=== PATIENT | female | born 1930 | race American Indian/Alaskan Native ===

== ENCOUNTER → 2016-05-14 | Outpatient (CLI) | payer OTHER, MEDICARE ==
[2016-05-14 13:13] LABS: BASO % 0.1 %; BASO ABS # 0.01 K/uL (0-0.2); COMPLETE YES; EOS % 3.4 %; HEMATOCRIT 40.6 % (37-47); IG% 0.1 %; LYMPH % 26.2 %; LYMPH ABS # 1.76 K/uL (1.2-3.4); MEAN CELL VOLUME 97.4 fL (80-100); MEAN CORPUSCULAR HEMOGLOBIN 31.4 pg (25-34); MEAN CORPUSCULAR HGB CONC 32.3 g/dl (32-36); MEAN PLATELET VOLUME 11.5 fL (7.4-10.4); MONO % 11.6 %; NEUT % 58.6 %; PLATELET COUNT 162 K/uL (130-400); RED BLOOD COUNT 4.17 M/uL (4.2-5.4); WHITE BLOOD COUNT 6.71 K/uL (4.8-10.8)
[2016-05-14 13:35] LABS: ALT/SGPT 24 U/L (12-78); BLOOD UREA NITROGEN 25 mg/dl (7-18); BUN/CREATININE RATIO 18.9 (10-20); CALCIUM 9.4 mg/dl (8.5-10.1); CARBON DIOXIDE 30 mmol/L (21-32); CHLORIDE 101 mmol/L (98-107); CHOLESTEROL 125 mg/dl (0-200); GLUCOSE 92 mg/dl (70-99); MAGNESIUM 1.9 mg/dl (1.8-2.4); POTASSIUM 4.6 mmol/L (3.5-5.1); SODIUM 138 mmol/L (136-145); TRIGLYCERIDES 207 mg/dl (0-150); VERY LOW DENSITY LIPOPROT CALC 41 mg/dl
[2016-05-14 13:39] LABS: ALB/GLOB RATIO 1.2 (0.9-2); ALKALINE PHOSPHATASE 64 U/L (45-117); AST/SGOT 22 U/L (15-37); CHOLESTEROL/HDL RATIO 3.3; HDL CHOLESTEROL 38 mg/dl; LDL CHOLESTEROL CALCULATED 46 mg/dl
== END | disposition home or self-care (01) ==
LOC: C.LABMFLN 08:45
PROVIDERS: ATTEND Family Medicine
DX: I10 Essential (primary) hypertension (principal); E78.5 Hyperlipidemia, unspecified; E83.42 Hypomagnesemia

== ENCOUNTER → 2017-02-27 | Outpatient (CLI) | payer OTHER, MEDICARE | END | disposition home or self-care (01) | LOC: C.LABMFLN 09:46 | PROVIDERS: ATTEND Family Medicine | DX: R35.0 Frequency of micturition (principal) ==

== ENCOUNTER → 2017-06-05 | Outpatient (CLI) | payer OTHER, MEDICARE ==
[2017-06-05 12:46] LABS: BASO % 0.2 %; BASO ABS # 0.01 K/uL (0-0.2); EOS % 6.2 %; EOS ABS # 0.29 K/uL (0-0.5); HEMATOCRIT 38.6 % (37-47); HEMOGLOBIN 12.3 g/dL (12.0-16.0); IG# 0.01 K/uL (0.00-0.02); LYMPH % 33.9 %; LYMPH ABS # 1.59 K/uL (1.2-3.4); MEAN CELL VOLUME 100.3 fL (80-100); MEAN CORPUSCULAR HEMOGLOBIN 31.9 pg (25-34); MEAN CORPUSCULAR HGB CONC 31.9 g/dl (32-36); MEAN PLATELET VOLUME 11.5 fL (7.4-10.4); MONO % 10.9 %; MONO ABS # 0.51 K/uL (0.11-0.59); NEUT % 48.6 %; NEUT ABS # 2.28 K/uL (1.4-6.5); PLATELET COUNT 141 K/uL (130-400); RED CELL DISTRIBUTION WIDTH CV 13.4 % (11.5-14.5); RED CELL DISTRIBUTION WIDTH SD 49.3 fL (36.4-46.3); WHITE BLOOD COUNT 4.69 K/uL (4.8-10.8)
[2017-06-05 13:18] LABS: BLOOD UREA NITROGEN 32 mg/dl (7-18); CALCIUM 9.1 mg/dl (8.5-10.1); CARBON DIOXIDE 32 mmol/L (21-32); CREATININE 1.42 mg/dl (0.60-1.20); GLUCOSE 86 mg/dl (70-99); POTASSIUM 4.5 mmol/L (3.5-5.1); SODIUM 140 mmol/L (136-145)
[2017-06-05 13:19] LABS: BLOOD UREA NITROGEN 32 mg/dl (7-18); CALCIUM 9.3 mg/dl (8.5-10.1); CARBON DIOXIDE 30 mmol/L (21-32); CREATININE 1.35 mg/dl (0.60-1.20); GLUCOSE 87 mg/dl (70-99); POTASSIUM 4.5 mmol/L (3.5-5.1); SODIUM 141 mmol/L (136-145)
[2017-06-05 13:26] LABS: CHOLESTEROL 116 mg/dl (0-200); LDL CHOLESTEROL CALCULATED 39 mg/dl; PHOSPHORUS 3.6 mg/dl (2.5-4.9)
== END | disposition home or self-care (01) ==
LOC: C.LABMFLN 09:00
PROVIDERS: ATTEND Family Medicine
DX: C50.012 Malignant neoplasm of nipple and areola, left female breast (principal)

== ENCOUNTER 2018-12-04 09:50 | Inpatient (IN) ==
[2018-12-04] MEDS ORDERED: SODIUM CHLORIDE 0.9% 500 ML IV SCH (10:15)
[2018-12-04] MEDS ORDERED: SODIUM CHLORIDE 0.9% 1000ML 1,000 ML IV SCH (10:15)
--- NOTE | 2018-12-04 10:20 | XRay Report ---
XR chest 1V portable HISTORY: weakness COMPARISON: None. FINDINGS: No pneumothorax. No pleural effusions. Surgical clips within the left axilla. Slight promin ence of interstitial markings which may be chronic. No evidence for real pulmonary edema. No focal l mia consolidations to suggest pneumonia. The heart is top normal in size. IMPRESSION: No acute process. Electronically signed by: Anthony Sterling M.D. 12/04/2018 10:18 AM
[2018-12-04 10:50] LABS: Appearance Urine Clear (Clear); Bacteria Urine Automated Negative (Negative); Bilirubin Urine Negative (Negative); Blood Urine Negative (Negative); Cast Urine Automated 0 /lpf (0-5); Color Urine Yellow; Glucose Urine UA Negative (Negative); Ketones Urine Negative (Negative); Leukocyte Esterase Urine Trace (Negative); Nitrite Urine Negative (Negative); RBC Urine Automated 0-4 /hpf (0-4); Specific Gravity Urine 1.012 (1.000-1.030); Urobilinogen Urine Negative (Negative); pH Urine 7.5 (4.5-7.5)
[2018-12-04 10:51] LABS: Protein Urine Negative (Negative); Sulfosalicylic Acid Urine Negative (Negative)
[2018-12-04 10:54] LABS: Basophils # (auto) 0.01 K/uL (0-0.2); Basophils % (auto) 0.2 %; Eosinophils # (auto) 0.36 K/uL (0-0.5); Hematocrit (blood only) 38.1 % (37-47); Hemoglobin 12.4 g/dL (12.0-16.0); Immature Granulocytes # (auto) 0.01 K/uL (0.00-0.02); Immature Granulocytes % (auto) 0.2 %; Lymphocytes % (auto) 29.2 %; Mean Corpuscular Hemoglobin 31.5 pg (25-34); Mean Corpuscular Hgb Conc 32.5 g/dL (32-36); Mean Corpuscular Volume 96.7 fL (80-100); Mean Platelet Volume 11.1 fL (7.4-10.4); Monocytes # (auto) 0.52 K/uL (0.11-0.59); Monocytes % (auto) 10.1 %; Neutrophils # (auto) 2.73 K/uL (1.4-6.5); Neutrophils % (auto) 53.3 %; Platelet Count 147 K/uL (130-400); RDW Coefficient of Variation 13.6 % (11.5-14.5); RDW Standard Deviation 48.3 fL (36.4-46.3); Red Blood Count 3.94 M/uL (4.2-5.4); White Blood Count 5.13 K/uL (4.8-10.8)
--- NOTE | 2018-12-04 10:55 | CT Scan Report ---
CT head/brain wo con CT DOSE: 537.48 mGy.cm HISTORY: Trauma. Mental status change. fall, tremors TECHNIQUE: Multiaxial CT images of the head were performed without the use of intravenous contrast. A dose lowering technique was utilized adhering to the principles of ALARA. Comparison: None. Findings: The paranasal sinuses and mastoid air cells are clear. The calvarium and skull base are int act. The ventricles and sulci are within normal limits. There is no mass, hematoma, midline shift, or acute infarct. Impression: No acute intracranial abnormality. Mild age-related atrophy and chronic small vessel change. The above report was generated using voice recognition software. It may contain grammatical, syntax or spelling errors. Electronically signed by: Neel Dunbar M.D. 12/04/2018 10:54 AM
[2018-12-04 11:03] LABS: INR 1.4 (0.9-1.1)
[2018-12-04 11:14] LABS: Alanine Aminotransferase 27 U/L (12-78); Albumin Level 4.2 gm/dl (3.4-5.0); Aspartate Aminotransferase 27 U/L (15-37); BUN Creatinine Ratio 22.6 (10-20); Blood Urea Nitrogen 38 mg/dl (7-18); Carbon Dioxide 32 mmol/L (21-32); Chloride 97 mmol/L (98-107); Est GFR (African American) 31.8; Est GFR (Non-African American) 27.4; Glucose 95 mg/dl (70-99); Magnesium 1.9 mg/dl (1.8-2.4); Potassium 4.5 mmol/L (3.5-5.1); Sodium 136 mmol/L (136-145)
[2018-12-04 11:25] LABS: Albumin Globulin Ratio 1.2 (0.9-2); Alkaline Phosphatase 62 U/L (45-117); Bilirubin,Total 0.5 mg/dl (0.2-1); Creatine Kinase 93 U/L (26-192); Globulin 3.5 gm/dl (2.5-4.0); Total Protein 7.7 gm/dl (6.4-8.2); Troponin I < 0.015 ng/ml (0-0.045)
--- NOTE | 2018-12-04 13:24 | History & Physical Report ---
Date of Service December 04, 2018 Assessment & Plan (1) Parkinsonian syndrome: Admit the patient to [facility] telemetry for appearance of progression of Parkinson disease or flareup Vital signs every 4 hours Placed neurology consult Hold Mirapex Replenish electrolytes Follow-up CBC CMP daily DVT prophylaxis patient is on warfarin for A. fib's. Present on Admission?: Yes (2) Generalized weakness: PT OT once when parkinsonian flareup subsides and acute illness gets under control. Present on Admission?: Yes (3) Multiple falls: Mechanical falls, appears to be related to patient issue due to persistent tremor and parkinsonian flareup. Present on Admission?: Yes (4) Tremor: As above Present on Admission?: Yes (5) Congestive heart failure: Clinically patient does not appear to be in overt congestive heart failure. Her BNP is elevated to 2021. Continue home medicine amlodipine 2.5 mg p.o. daily. Furosemide 20 mg p.o. daily switched to 10 mg p.o. IV twice daily. Monitor electrolytes closely especially potassium and magnesium and replenished as necessary. Strict in and out and daily weight. Continue lisinopril 10 mg p.o. daily. Continue magnesium 400 mg p.o. daily. Continue metoprolol succinate ER 50 mg extended release p.o. daily, continue nitroglycerin 0.4 mg every 5 minutes as needed for chest pain. Present on Admission?: Yes (6) Depression with anxiety: (7) Atrial fibrillation: Patient is supratherapeutic INR 1.4. Continue warfarin 2 mg p.o. daily. It is not clear if patient is subtherapeutic because she did not take her medication regularly or because she needs to increase her dose. We will recheck INR daily and adjust as necessary to reach INR between 2 and 3 for A. fib's. Present on Admission?: Yes (8) Hyperlipidemia: Lipid panel in a.m. Continue atorvastatin 20 mg p.o. daily Present on Admission?: Yes (9) Depression: Stable ,continue nitrazepam 7.5 mg p.o. nightly, clonazepam 0.5 p.o. daily. Present on Admission?: Yes (10) Anemia: Resolved. Appears to be stable with vitamin C 250 mg p.o. daily and FeroSul for 325 mg p.o. twice daily. H&H at this point 12.4/38.1 Present on Admission?: Yes History of Present Illness Chief Complaint: Worsening tremor Primary Care Provider: Emily Gunderson MD Patient is a 88 years old female with past medical history of hypertension, hyperlipidemia, peripheral neuropathy, restless leg syndrome, status post hysterectomy for cancer, status post mastectomy, A. fib's for breast cancer lumbar disc degeneration, chronic kidney disease, who presents to the emergency department for evaluation of intermittent episodes of falls for the past 3 days and worsening tremor. Patient and her family states that patient was diagnosed recently with parkinsonian disease and she was given Mirapex 0.25 mg last week and since then patient started to have severe shaking with flailing. Patient is pleasant and appropriately representing herself even though she has stuttering which she said started after she was placed on this new medicine. Patient has atrial fibrillation and she takes warfarin 2 mg p.o. daily for that. Patient denies fever, chills, headache, chest pain, shortness of breath, frequency, urgency, hematuria, dysuria, syncope, near syncope. Labs are reviewed white blood cell 5.13, hemoglobin 12.4, hematocrit 38.1, platelets 147, PT 14, INR 1.4, sodium 136, potassium 4.5, chloride 97, anion gap 7, BUN 38, creatinine 1.66, GFR 27.4, BNP 2022, TSH 2.24, troponin less than 0.015. Urine positive for trace leukocytes esterase and 5-10 white blood cells. No bacteria found in urine. CT of the head no acute intracranial abnormality. Mild age-related atrophy and chronic small vessel changes. Decision was made to admit patient to [facility] with telemetry on observation for further management and treatment of flare up of Parkinson disease or parkinsonian-like syndrome with flailing tremor and urinary tract infection. Allergies Allergy/AdvReac Type Severity Reaction Status Date / Time citalopram Allergy Verified 12/04/18 10:35 cortisone Allergy Verified 12/04/18 10:35 Home Medications Home Medications Medication Instructions Recorded Confirmed Type mirtazapine 7.5 mg tablet 7.5 mg PO HS #30 tab 08/11/18 12/04/18 Rx amlodipine 2.5 mg tablet 2.5 mg PO DAILY 09/18/18 12/04/18 History atorvastatin 20 mg tablet 20 mg PO DAILY 09/18/18 12/04/18 History esomeprazole magnesium 40 mg 40 mg PO DAILY cap 09/18/18 12/04/18 History capsule,delayed release ascorbic acid (vitamin C) 250 mg 250 mg PO DAILY tab 09/19/18 12/04/18 History tablet calcium carbonate 600 mg (1,500 1 tab PO BID tab 09/19/18 12/04/18 History mg)-vitamin D3 400 unit tablet ferrous sulfate 325 mg (65 mg 325 mg PO BID tab 09/19/18 12/04/18 History iron) tablet letrozole 2.5 mg tablet 2.5 mg PO DAILY tab 09/19/18 12/04/18 History warfarin 2 mg tablet 2 mg PO DAILY #60 tab 09/19/18 12/04/18 History gabapentin 100 mg capsule 200 mg PO BID cap 09/25/18 12/04/18 History metoprolol succinate ER 50 mg 50 mg PO DAILY #90 tab 10/27/18 12/04/18 Rx tablet,extended release 24 hr calcitriol 0.25 mcg capsule 0.25 mcg PO DAILY #90 cap 11/10/18 12/04/18 Rx lisinopril 10 mg tablet 10 mg PO DAILY #90 tab 11/10/18 12/04/18 Rx multivit with 1 tab PO DAILY 11/19/18 12/04/18 History [id number]-PQ-lutein 8 mg iron-400 mcg-300 mcg tablet primidone 50 mg tablet 50 mg PO HS tab 11/19/18 12/04/18 History travoprost 0.004 % eye drops 1 drops OP .COMPLEX ml 11/19/18 12/04/18 History nitroglycerin 0.4 mg sublingual 0.4 mg SL Q5M PRN #25 tab 11/20/18 12/04/18 Rx tablet furosemide 20 mg tablet 20 mg PO DAILY #90 tab 12/02/18 12/04/18 Rx magnesium 400 mg (as magnesium 400 mg PO DAILY #90 cap 12/02/18 12/04/18 Rx oxide) capsule Quinine-Vitamin E Capsules 2 cap PO HS 12/04/18 12/04/18 History cholecalciferol (vitamin D3) 1,000 unit PO QAM 12/04/18 12/04/18 History [Vitamin D3] clonazepam 0.5 mg PO DAILY 12/04/18 12/04/18 History dextran 70-hypromellose 1 drp OPHTHALMIC (EYE) DAILY 12/04/18 12/04/18 History docusate sodium 100 mg PO BID 12/04/18 12/04/18 History pramipexole 0.25 mg PO BID 12/04/18 12/04/18 History Past Med/Surg History Medical History Atrial fibrillation (Chronic) H/O malignant neoplasm of breast (Chronic) H/O cancer of uterus (Chronic) Congestive heart failure (Chronic) Benign colonic polyp (Chronic) Carotid stenosis (Chronic) Cervical radiculopathy (Chronic) Chronic kidney disease (Chronic) Depression with anxiety (Chronic) Disc degeneration, lumbar (Chronic) Gastro-esophageal reflux disease without esophagitis (Chronic) Gait abnormality (Chronic) Glaucoma (Chronic) Hyperlipidemia (Chronic) Essential hypertension (Chronic) Hypomagnesemia (Chronic) Peripheral neuropathy (Chronic) Restless legs syndrome (Chronic) Rosacea (Chronic) Surgical History S/P cataract extraction S/P cholecystectomy S/P colonoscopy S/P cardiac cath S/P dilatation and curettage Status post hip replacement S/P knee replacement S/P hysterectomy History of mastectomy Social History Preferred Language: [place]an Communication Ability: Effective Insole Doubler Required: No Beliefs That Will Affect Care: None marital status: / Current Living Situation: Alone Other Information That Helps Us Care for You: No Feels Safe at Home: Yes Safety Concerns: Feels Safe At This Time Smoking Status: Never smoker Do You Dip or Chew Tobacco: No ; Second Hand Exposure: No ; Tobacco Cessation Education Requested by Patient: No Hx Alcohol Use: No Hx Substance Use: No Review of Systems Review of Systems: All systems reviewed & are unremarkable except as noted in HPI & below Physical Exam Constitutional: WD/WN, vitals as above well developed and + frail appearing Eyes: PERRL, conjunctivae normal, anicteric sclerae ENMT: external ear and nose normal, oropharynx normal Neck: trachea midline, no thyromegaly Respiratory: normal respiratory effort, lungs clear to auscultation Cardiovascular: Rate/Rhythm: + irregularly irregular Heart Sounds: normal S1 and normal S2 Gastrointestinal (Abdomen): normal bowel sounds, soft, nontender, no hepatosplenomegaly Musculoskeletal: no cyanosis or clubbing, extremities motor strength 5/5 Skin: no rashes, warm and dry Neurologic: Gait: + shuffling gait Coordination: + abnormal [id number] test Flailing tremor Psychiatric: A+Ox3, euthymic affect Lymphatic: no cervical or axillary lymphadenopathy Results & Data Vital Signs (Past 12 Hours) Vital Signs Temp Pulse Pulse Resp BP BP Pulse Ox 12/04/18 13:00 83 20 139/110 H 99 12/04/18 11:30 86 19 152/86 H 96 12/04/18 10:33 97 12/04/18 10:00 36.7 C 92 H 17 98/78 L 96 Code Status & VTE Plan Code Status Full code VTE Prophylaxis Plan VTE Prophylaxis will be ordered: Yes PG Care Time/CCT Total # of Minutes Spent Total Time Spent with Patient: Total time spent is greater than 50% in coordin ation of care (as documented) at patient's floor/unit and/or counseling patient:
[2018-12-04] MEDS ORDERED: ZOLPIDEM TARTRATE 5 MG TAB PO PRN (14:47)
[2018-12-04] MEDS ORDERED: NITROGLYCERIN SL 0.4 MG/TAB TAB SL PRN (14:47)
[2018-12-04] MEDS ORDERED: ACETAMINOPHEN 325 MG TAB PO PRN (14:47)
[2018-12-04] MEDS ORDERED: MAGNESIUM HYDROXIDE SUSP 30 ML UDC PO PRN (14:47)
[2018-12-04] MEDS ORDERED: ALUMINUM/MAGNESIUM SUSP 30 ML UDC PO PRN (14:47)
[2018-12-04] MEDS ORDERED: POLYETHYLENE (MIRALAX) 17 GM PACK PO PRN (14:47)
[2018-12-04] MEDS: WARFARIN SOD 2 MG TAB PO SCH (16:11)
--- NOTE | 2018-12-04 17:05 | Emergency Department Note ---
Entered by Scotty Livingston acting as a scribe for Scott Davidson MD ED Provider Note CHIEF COMPLAINT: Episodes of falls HISTORY OF PRESENT ILLNESS: The patient is an 88 y/o female who presents to the emergency department for evaluation of intermittent episodes of falls over the past three days. The family states that the patient recently got new Parkinsons medication called Mirapex (.25) last week and since then her shaking went from minimal to a lot of shaking with flailing. They note that the patient is on a lot of medications w hich have been getting confusing for her. The patient state that her left knee has been bothering her with cracking and has been contributing to the walking issues. The patient also reports that the falls have only caused some black and blue bruising. Pt denies LOC, headache, fevers, chills, diaphoresis, visual changes, neck pain, chest pain, breathing difficulties, nausea, vomiting, abdominal pain, back pain, melena, hematochezia, urinary symptoms, numbness, weakness, lymphadenopathy, rash, or other complaints. REVIEW OF SYSTEMS: See HPI for pertinent positives and negatives. A total of ten systems were reviewed and were otherwise negative. PMHx/PSHx: H/O uterus cancer H/O Breast cancer S/P Cardiac Cath Atrial fibrillation CHF Chronic kidney disease GERD SOCIAL HISTORY: Patient lives at home. PHYSICAL EXAM: GENERAL: Awake, alert, well-appearing, in no distress. Significant resting tremor present. HENT: Normocephalic, atraumatic. Oropharynx unremarkable. EYES: PERRL. Normal conjunctiva. Sclera non-icteric. NECK: Inspection normal. Non-tender. Supple. No nuchal rigidity. FROM. No masses. RESPIRATORY: Clear to auscultation. No wheezes. No rales. Normal respiratory effort. CARDIAC: Normal rate. Normal rhythm. No murmurs. No rubs. Extremities warm and well perfused. Pulses equal. No JVD. GI: Soft, non-distended. No tenderness to palpation. No rebound or guarding. No masses. RECTAL: Deferred. MUSCULOSKELETAL: Atraumatic. Chest examination reveals no tenderness. The back is symmetrical on inspection without obvious abnormality. There is no CVA tenderness to palpation. No joint edema. LOWER EXTREMITIES: Calves are equal size bilaterally and non-tender. No edema. No discoloration. NEURO: Normal sensorium. No sensory or motor deficits noted. SKIN: No rash or jaundice noted. EMERGENCY DEPARTMENT COURSE: 09: Past medical records reviewed. The patient was evaluated in room A12A, and a complete history and physical examination were performed. 1140: I updated the patient and her family on his results. I discussed the treatment plan with them. 1149: I spoke with Dr. Eduar RIVERA hospitalist. Will evaluate for further management. MEDICAL DECISION MAKING: Prior records/ancillary studies reviewed. Nursing notes reviewed and agree them. Additional history obtained from family. The patient's history was concerning for weakness, falls, and tremor with Parki nson's disease history. Differential diagnosis: Etiologies such as metabolic, infection, hypo/hyperglycemia, electrolyte abnormalities, cardiac sources, intracerebral event, toxicologic, neurologic, as well as others were entertained. Physical examination: As above. ER treatment provided: IV [place] hydration On reassessment the patient was stable. Diagnostics interpretation by me: ECG: Negative for acute ischemic change. The labs revealed an unremarkable CBC and chemistry panel. Patient was slightly dehydrated. Urinalysis negative. Troponin TSH negative. Imaging studies: Chest x-ray and CT imaging negative. Patient and family note that she is now doing well at home. She is had multiple falls. The tremors are dramatically worse. Consultation: A consultation was placed with the hospitalist. The case was discussed and diagnostics were reviewed. The patient was evaluated in the ER for further treatment. IMPRESSION: Generalized weakness, multiple falls, tremor, and history of Parkinsons PLAN: Admitted The scribe's documentation has been prepared under my direction and personally reviewed by me in its entirety. I confirm that the note above accurately reflec ts all work, treatment, procedures, and medical decision making performed by me. Impression & Plan Generalized weakness, Multiple falls, Tremor, History of Parkinson's disease Past Med/Surg History Medical History Atrial fibrillation (Chronic) H/O malignant neoplasm of breast (Chronic) H/O cancer of uterus (Chronic) Congestive heart failure (Chronic) Benign colonic polyp (Chronic) Carotid stenosis (Chronic) Cervical radiculopathy (Chronic) Chronic kidney disease (Chronic) Depression with anxiety (Chronic) Disc degeneration, lumbar (Chronic) Gastro-esophageal reflux disease without esophagitis (Chronic) Gait abnormality (Chronic) Glaucoma (Chronic) Hyperlipidemia (Chronic) Essential hypertension (Chronic) Hypomagnesemia (Chronic) Peripheral neuropathy (Chronic) Restless legs syndrome (Chronic) Rosacea (Chronic) Surgical History S/P cataract extraction S/P cholecystectomy S/P colonoscopy S/P cardiac cath S/P dilatation and curettage Status post hip replacement S/P knee replacement S/P hysterectomy History of mastectomy Social History Preferred Language: Togolese Communication Ability: 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 Beliefs That Will Affect Care: None marital status: / Current Living Situation: Alone Other Information That Helps Us Care for You: No Feels Safe at Home: Yes Safety Concerns: Feels Safe At This Time Smoking Status: Never smoker Do You Dip or Chew Tobacco: No ; Second Hand Exposure: No ; Tobacco Cessation Education Requested by Patient: No Hx Alcohol Use: No Hx Substance Use: No Results & Data Vital Signs Vital Signs - 24 hr 12/04/18 10:00 12/04/18 10:33 12/04/18 11:30 Temperature 36.7 C Temperature Source Oral Sepsis Recent Fever Within 48 Hours No Sepsis New/Unexplained Change in Mental Status No Sepsis Action Taken by Nursing No Action Required Pulse Rate 92 H Pulse Rate [Apical] 86 Pulse Rhythm [Apical] Regular Respiratory Rate 17 19 Respiratory Effort / Characteristics Non-Labored Spontaneous Non-Labored Spontaneous Respiratory Depth Normal Normal Respiratory Pattern Regular Regular Blood Pressure 98/78 L Blood Pressure [Right Arm] 152/86 H Blood Pressure Mean 84 Blood Pressure Mean [Right Arm] 108 Pulse Oximetry 96 97 96 Oxygen Delivery Method Room Air Room Air Room Air 12/04/18 13:00 Temperature Temperature Source Sepsis Recent Fever Within 48 Hours Sepsis New/Unexplained Change in Mental Status Sepsis Action Taken by Nursing Pulse Rate Pulse Rate [Apical] 83 Pulse Rhythm [Apical] Regular Respiratory Rate 20 Respiratory Effort / Characteristics Non-Labored Spontaneous Respiratory Depth Normal Respiratory Pattern Regular Blood Pressure Blood Pressure [Right Arm] 139/110 H Blood Pressure Mean Blood Pressure Mean [Right Arm] 119 Pulse Oximetry 99 Oxygen Delivery Method Room Air Home Medications Current Medication List: was personally reviewed by me Laboratory Data Attestation: I reviewed the patient's lab results. Result diagrams: 12/04/18 10:34 12/04/18 10:34 Lab Results 12/04/18 12/04/18 12/04/18 Range/Units 10:30 10:34 10:34 WBC 5.13 (4.8-10.8) K/uL RBC 3.94 L (4.2-5.4) M/uL Hgb 12.4 (12.0-16.0) g/dL Hct 38.1 (37-47) % MCV 96.7 (80-100) fL MCH 31.5 (25-34) pg MCHC 32.5 (32-36) g/dL RDW Std Deviation 48.3 H (36.4-46.3) fL RDW Coeff of Gala 13.6 (11.5-14.5) % Plt Count 147 (130-400) K/uL MPV 11.1 H (7.4-10.4) fL Immature Gran % (Auto) 0.2 % Neut % (Auto) 53.3 % Lymph % (Auto) 29.2 % Schleicher % (Auto) 10.1 % Eos % (Auto) 7.0 % Baso % (Auto) 0.2 % Immature Gran # (Auto) 0.01 (0.00-0.02) K/uL Neut # (Auto) 2.73 (1.4-6.5) K/uL Lymph # (Auto) 1.50 (1.2-3.4) K/uL Schleicher # (Auto) 0.52 (0.11-0.59) K/uL Eos # (Auto) 0.36 (0-0.5) K/uL Baso # (Auto) 0.01 (0-0.2) K/uL PT (9.0-12.0) Seconds INR (0.9-1.1) Sodium 136 (136-145) mmol/L Potassium 4.5 (3.5-5.1) mmol/L Chloride 97 L (98-107) mmol/L Carbon Dioxide 32 (21-32) mmol/L Anion Gap 7.0 (3-11) BUN 38 H (7-18) mg/dl Creatinine 1.66 H (0.6-1.2) mg/dl Est Cr Clr Drug Dosing 27.0 ml/min Est GFR ( Amer) 31.8 Est GFR (Non-Af Amer) 27.4 BUN/Creatinine Ratio 22.6 H (10-20) Glucose 95 (70-99) mg/dl Calcium 10.0 (8.5-10.1) mg/dl Magnesium 1.9 (1.8-2.4) mg/dl Total Bilirubin 0.5 (0.2-1) mg/dl AST 27 (15-37) U/L ALT 27 (12-78) U/L Alkaline Phosphatase 62 (45-117) U/L Total Creatine Kinase 93 (26-192) U/L Troponin I < 0.015 (0-0.045) ng/ml Total Protein 7.7 (6.4-8.2) gm/dl Albumin 4.2 (3.4-5.0) gm/dl Globulin 3.5 (2.5-4.0) gm/dl Albumin/Globulin Ratio 1.2 (0.9-2) TSH 2.240 (0.300-4.500) uIu/ml Urine Color Yellow Urine Appearance Clear (Clear) Urine pH 7.5 (4.5-7.5) Ur Specific [place] 1.012 (1.000-1.030) Urine Protein Negative (Negative) Urine Glucose (UA) Negative (Negative) Urine Ketones Negative (Negative) Urine Blood Negative (Negative) Urine Nitrite Negative (Negative) Urine Bilirubin Negative (Negative) Urine Urobilinogen Negative (Negative) Ur Leukocyte Esterase Trace H (Negative) Urine WBC (Auto) 5-10 H (0-5) /hpf Urine RBC (Auto) 0-4 (0-4) /hpf U Hyaline Cast (Auto) 0 (0-5) /lpf U Epithel Cells (Auto) 5-10 H (0-5) /lpf Urine Bacteria (Auto) Negative (Negative) 12/04/18 Range/Units 10:34 WBC (4.8-10.8) K/uL RBC (4.2-5.4) M/uL Hgb (12.0-16.0) g/dL Hct (37-47) % MCV (80-100) fL MCH (25-34) pg MCHC (32-36) g/dL RDW Std Deviation (36.4-46.3) fL RDW Coeff of Gala (11.5-14.5) % Plt Count (130-400) K/uL MPV (7.4-10.4) fL Immature Gran % (Auto) % Neut % (Auto) % Lymph % (Auto) % Schleicher % (Auto) % Eos % (Auto) % Baso % (Auto) % Immature Gran # (Auto) (0.00-0.02) K/uL Neut # (Auto) (1.4-6.5) K/uL Lymph # (Auto) (1.2-3.4) K/uL Schleicher # (Auto) (0.11-0.59) K/uL Eos # (Auto) (0-0.5) K/uL Baso # (Auto) (0-0.2) K/uL PT 14.0 H (9.0-12.0) Seconds INR 1.4 H (0.9-1.1) Sodium (136-145) mmol/L Potassium (3.5-5.1) mmol/L Chloride (98-107) mmol/L Carbon Dioxide (21-32) mmol/L Anion Gap (3-11) BUN (7-18) mg/dl Creatinine (0.6-1.2) mg/dl Est Cr Clr Drug Dosing ml/min Est GFR ( Amer) Est GFR (Non-Af Amer) BUN/Creatinine Ratio (10-20) Glucose (70-99) mg/dl Calcium (8.5-10.1) mg/dl Magnesium (1.8-2.4) mg/dl Total Bilirubin (0.2-1) mg/dl AST (15-37) U/L ALT (12-78) U/L Alkaline Phosphatase (45-117) U/L Total Creatine Kinase (26-192) U/L Troponin I (0-0.045) ng/ml Total Protein (6.4-8.2) gm/dl Albumin (3.4-5.0) gm/dl Globulin (2.5-4.0) gm/dl Albumin/Globulin Ratio (0.9-2) TSH (0.300-4.500) uIu/ml Urine Color Urine Appearance (Clear) Urine pH (4.5-7.5) Ur Specific [place] (1.000-1.030) Urine Protein (Negative) Urine Glucose (UA) (Negative) Urine Ketones (Negative) Urine Blood (Negative) Urine Nitrite (Negative) Urine Bilirubin (Negative) Urine Urobilinogen (Negative) Ur Leukocyte Esterase (Negative) Urine WBC (Auto) (0-5) /hpf Urine RBC (Auto) (0-4) /hpf U Hyaline Cast (Auto) (0-5) /lpf U Epithel Cells (Auto) (0-5) /lpf Urine Bacteria (Auto) (Negative) Administered Medications Warfarin Sodium (Coumadin) 2 mg PO DAILY@1600 [facility] Stop: 01/03/19 15:59 Last Admin: 12/04/18 16:11 Dose: 2 mg Documented by: [id number] Discontinued Medications Sodium Chloride (Nss 1000ml) 1,000 mls @ 125 mls/hr IV .Q8H [facility] Stop: 12/04/18 18:14 Last Infusion: 12/04/18 15:03 Dose: 0 mls/hr Documented by: [id number] Admin: 12/04/18 11:28 Dose: 125 mls/hr Documented by: [id number] Sodium Chloride (Nss) 500 mls @ 999 mls/hr IV .Q31M [facility] Stop: 12/04/18 10:45 Last Infusion: 12/04/18 11:28 Dose: 0 mls/hr Documented by: [id number] Admin: 12/04/18 10:54 Dose: 999 mls/hr Documented by: [id number] Imaging Data Radiologist's Impression: Radiology results as stated below per my review and the radiologist's interpretation: CT head/brain wo con CT DOSE: 537.48 mGy.cm HISTORY: Trauma. Mental status change. fall, tremors TECHNIQUE: Multiaxial CT images of the head were performed without the use of intravenous contrast. A dose lowering technique was utilized adhering to the principles of ALARA. Comparison: None. Findings: The paranasal sinuses and mastoid air cells are clear. The calvarium and skull base are intact. The ventricles and sulci are within normal limits. There is no mass, hematoma, midline shift, or acute infarct. Impression: No acute intracranial abnormality. Mild age-related atrophy and chronic small vessel change. The above report was generated using voice recognition software. It may contain grammatical, syntax or spelling errors. Electronically signed by: Neel Dunbar M.D. 12/04/2018 10:54 AM XR chest 1V portable HISTORY: weakness COMPARISON: None. FINDINGS: No pneumothorax. No pleural effusions. Surgical clips within the left axilla. Slight prominence of interstitial markings which may be chronic. No evidence for real pulmonary edema. No focal lung consolidations to suggest pneumonia. The heart is top normal in size. IMPRESSION: No acute process. Electronically signed by: Anthony Sterling M.D. 12/04/2018 10:18 AM ECG Data Attestation: I personally reviewed and interpreted this ECG as follows: Indication: other (tremors ) Rate (beats per minute): 85 Rhythm: atrial fibrillation Findings: + other (Poor baseline data, normal QRS) and + nonspecific-ST abn; no PVC, no ST depression and no ST elevation Blood Pressure Blood Pressure Findings: Elevated blood pressure Blood Pressure Disposition: further management by hospitalist Discharge Plan Visit Data *Final* Discharge Date/Time: 12/04/18 14:29 Chief Complaint: Fall Stated Complaint: Frequent Falls ED Provider: Scott Davidson Discharge Problem: Generalized weakness, Multiple falls, Tremor, History of Parkinson's disease Patient Disposition: Admitted As Inpatient Discharge Instructions Interventions: ED Discharge Assessment Last Done: 12/04/18 14:29 The scribe's documentation has been prepared under my direction and personally reviewed by me in its entirety. I confirm that the note above accurately reflects all work, treatment, procedures, and medical decision making performed by me.
[2018-12-04] MEDS: GABAPENTIN 100 MG CAP PO SCH (20:29)
[2018-12-04] MEDS: DOCUSATE SODIUM 100 MG CAP PO SCH (20:29)
[2018-12-04] MEDS: FERROUS SULFATE 325 MG TAB PO SCH (20:29)
[2018-12-04] MEDS: CALCIUM 600MG + VIT D 400 IU TAB PO SCH (20:30)
[2018-12-04] MEDS: MIRTAZAPINE TAB 15 MG TAB PO SCH (20:31)
[2018-12-04] MEDS: TRAVOPROST Z 0.004% OPH SOLN 2.5 ML BTL OPB SCH (20:33)
[2018-12-04] MEDS ORDERED: QUININE PO SCH (21:00)
[2018-12-04] MEDS ORDERED: PRIMIDONE 50 MG TAB PO SCH (21:00)
[2018-12-04] MEDS ORDERED: VITAMIN E PO SCH (21:00)
[2018-12-05 06:59] LABS: Basophils # (auto) 0.02 K/uL (0-0.2); Basophils % (auto) 0.4 %; Eosinophils # (auto) 0.41 K/uL (0-0.5); Eosinophils % (auto) 8.4 %; Hematocrit (blood only) 37.2 % (37-47); Hemoglobin 12.2 g/dL (12.0-16.0); Immature Granulocytes # (auto) 0.01 K/uL (0.00-0.02); Immature Granulocytes % (auto) 0.2 %; Lymphocytes # (auto) 1.15 K/uL (1.2-3.4); Lymphocytes % (auto) 23.5 %; Mean Corpuscular Hemoglobin 31.7 pg (25-34); Mean Corpuscular Hgb Conc 32.8 g/dL (32-36); Mean Corpuscular Volume 96.6 fL (80-100); Monocytes # (auto) 0.78 K/uL (0.11-0.59); Monocytes % (auto) 15.9 %; Neutrophils # (auto) 2.53 K/uL (1.4-6.5); Neutrophils % (auto) 51.6 %; Platelet Count 132 K/uL (130-400); RDW Coefficient of Variation 13.7 % (11.5-14.5); RDW Standard Deviation 48.1 fL (36.4-46.3); Red Blood Count 3.85 M/uL (4.2-5.4)
[2018-12-05 07:38] LABS: Albumin Level 3.8 gm/dl (3.4-5.0); BUN Creatinine Ratio 26.6 (10-20); Calcium 9.2 mg/dl (8.5-10.1); Creatinine Clr Calc Pharmacy 32.3 ml/min; Est GFR (African American) 40.1; Est GFR (Non-African American) 34.6; Magnesium 1.8 mg/dl (1.8-2.4); Potassium 4.5 mmol/L (3.5-5.1)
[2018-12-05 07:41] LABS: Albumin Globulin Ratio 1.2 (0.9-2); Bilirubin,Total 0.4 mg/dl (0.2-1); Globulin 3.2 gm/dl (2.5-4.0)
[2018-12-05] MEDS: ARTIFICIAL TEARS OPB SCH (09:00)
[2018-12-05] MEDS: METOPROLOL SUCC 50MG EXT REL TAB PO SCH (09:29)
[2018-12-05] MEDS: ASCORBIC ACID 500 MG TAB PO SCH (09:29)
[2018-12-05] MEDS: AMLODIPINE BESYLATE 5 MG TAB PO SCH (09:29)
[2018-12-05] MEDS: lisinopriL 10 MG TAB PO SCH (09:29)
[2018-12-05] MEDS: FUROSEMIDE 20 MG TAB PO SCH (09:30)
[2018-12-05] MEDS: MAGNESIUM OXIDE 400 MG TAB PO SCH (09:30)
[2018-12-05] MEDS: FERROUS SULFATE 325 MG TAB PO SCH ×2 (09:31→20:37)
[2018-12-05] MEDS: DOCUSATE SODIUM 100 MG CAP PO SCH ×3 (09:31→20:37)
[2018-12-05] MEDS: CALCITRIOL 0.25 MCG CAPSULE PO SCH (09:31)
[2018-12-05] MEDS: ATORVASTATIN 20 MG TAB PO SCH (09:31)
[2018-12-05] MEDS: GABAPENTIN 100 MG CAP PO SCH ×2 (09:31→20:36)
[2018-12-05] MEDS: CALCIUM 600MG + VIT D 400 IU TAB PO SCH ×2 (09:31→20:37)
[2018-12-05] MEDS: LETROZOLE 2.5 MG TAB PO SCH (09:32)
[2018-12-05] MEDS: MULTIVITAMIN TAB PO SCH (09:32)
[2018-12-05] MEDS: CHOLECALCIFEROL 1,000 UNITS TAB PO SCH (09:32)
[2018-12-05] MEDS: PANTOprazole 40 MG TAB PO SCH (09:32)
[2018-12-05] MEDS: clonazePAM 0.5 MG TAB PO SCH (09:42)
--- NOTE | 2018-12-05 10:27 | Neurology Consultation ---
Date of Consultation December 05, 2018 Assessment & Plan (1) Multiple system atrophy with predominant parkinsonism: I suspect this patient has multiple system atrophy with predominant parkinsonian features. She presents with a long-standing history of progressive gait and postural instability, recurrent falls, and what appears to be a significant polyneuropathy with associated sensory ataxia. She has more recently developed a rather significant, course, bilateral upper extremity resting and postural tremor, but not really a classic pill-rolling resting tremor of the type more commonly associated with idiopathic Parkinson's disease. I do not believe her tremor is of the benign essential type. Also, her tremor is quite significant, and it is difficult to fully exclude an element of cerebellar dysfunction. Her ocular motility is quite good and her posture is not overly erect which probably makes progressive supranuclear palsy less likely. She does not have ventriculomegaly on her CT of the head which would exclude normal pressure hydrocephalus. Her mentation seems normal and I do not think she has a significant dementia. Dementia with Lewy bodies is probably unlikely although she did report some non-distressing visual hallucinations overnight. This issue does bear some watching going forward. I would also need to include her history of lumbar spinal stenosis as a potential contributor to her gait dysfunction as she may have an element of neurogenic claudication as well. At this point, I would discontinue her pramipexole and primidone as these medications are not very effective for her and could be contributing to her poor balance. I would also recommend reducing her gabapentin dosage to 100 mg twice daily. She does not have much neuropathic pain and we may be able to discontinue this medication altogether as gabapentin may also have an adverse effect on balance. I think it would be reasonable to try carbidopa/levodopa (Sinemet) for her parkinsonian tremor. I will start her with one half of a 25/100 mg tablet taken 3 times per day and plan to gradually uptitrate the dose depending on her response and tolerance over the next few weeks. I would also like this patient to have a noncontrast brain and cervical spine MRI completed. She will need consultations with PT/OT. If her low back pain significantly escalates it may be reasonable to consult pain management. History of Present Illness Reason for Consultation: Parkinsonism Requesting Physician: Kahlil Anthony MD Attending Physician: Pipe De La Rosa DO History of Present Illness The patient is an 88-year-old female with a chief complaint of persistent, progressive poor balance and falls which has gotten especially worse over the past few months. She relays a history of chronic low back pain, leg cramps, and distal lower extremity numbness which began insidiously several years ago and has been attributed to lumbar spinal stenosis and peripheral neuropathy. The symptoms tend to get worse with prolonged standing and walking. She has been using a walker for the past few months as well. She also complains of a rather coarse, bilateral, symmetric upper extremity resting and action tremor that seemed to begin over the summer. She has been following with Dr. Urbina, a neurologist in [place] for polyneuropathy, lumbar spinal stenosis/radiculopathy, tremor, and possible parkinsonism. She had been given prescriptions for primidone and ropinirole to address her tremor although these medications have not been helpful. She was subsequently given a prescription for pramipexole which has also not been very helpful. She denies experiencing any significant orthostatic dizziness or excessive daytime somnolence. She denies a compulsion to kick or move her limbs while sitting quietly or lying in bed in the evening but does admit that her limbs tend to move frequently on their own. She denies anosmia. She denies experiencing any significant memory loss or cognitive difficulty. In terms of her peripheral neuropathy, she did have an EMG completed with Dr. Urbina that corroborated this diagnosis. She does have mild to moderate multilevel lumbar spinal stenosis as well as depicted on a recent lumbar spine MRI. She does complain of bilateral distal lower extremity numbness, but not much pain, and an inability to feel the floor from under her feet with standing and walking. Allergies Allergy/AdvReac Type Severity Reaction Status Date / Time citalopram Allergy Verified 12/04/18 10:35 cortisone Allergy Verified 12/04/18 10:35 Home Medications Home Medications Medication Instructions Recorded Confirmed Type mirtazapine 7.5 mg tablet 7.5 mg PO HS #30 tab 08/11/18 12/04/18 Rx amlodipine 2.5 mg tablet 2.5 mg PO DAILY 09/18/18 12/04/18 History atorvastatin 20 mg tablet 20 mg PO DAILY 09/18/18 12/04/18 History esomeprazole magnesium 40 mg 40 mg PO DAILY cap 09/18/18 12/04/18 History capsule,delayed release ascorbic acid (vitamin C) 250 mg 250 mg PO DAILY tab 09/19/18 12/04/18 History tablet calcium carbonate 600 mg (1,500 1 tab PO BID tab 09/19/18 12/04/18 History mg)-vitamin D3 400 unit tablet ferrous sulfate 325 mg (65 mg 325 mg PO BID tab 09/19/18 12/04/18 History iron) tablet letrozole 2.5 mg tablet 2.5 mg PO DAILY tab 09/19/18 12/04/18 History warfarin 2 mg tablet 2 mg PO DAILY #60 tab 09/19/18 12/04/18 History gabapentin 100 mg capsule 200 mg PO BID cap 09/25/18 12/04/18 History metoprolol succinate ER 50 mg 50 mg PO DAILY #90 tab 10/27/18 12/04/18 Rx tablet,extended release 24 hr calcitriol 0.25 mcg capsule 0.25 mcg PO DAILY #90 cap 11/10/18 12/04/18 Rx lisinopril 10 mg tablet 10 mg PO DAILY #90 tab 11/10/18 12/04/18 Rx multivit with 1 tab PO DAILY 11/19/18 12/04/18 History yqejuwee-sujc-DP-lutein 8 mg iron-400 mcg-300 mcg tablet primidone 50 mg tablet 50 mg PO HS tab 11/19/18 12/04/18 History travoprost 0.004 % eye drops 1 drops OP .COMPLEX ml 11/19/18 12/04/18 History nitroglycerin 0.4 mg sublingual 0.4 mg SL Q5M PRN #25 tab 11/20/18 12/04/18 Rx tablet furosemide 20 mg tablet 20 mg PO DAILY #90 tab 12/02/18 12/04/18 Rx magnesium 400 mg (as magnesium 400 mg PO DAILY #90 cap 12/02/18 12/04/18 Rx oxide) capsule Quinine-Vitamin E Capsules 2 cap PO HS 12/04/18 12/04/18 History cholecalciferol (vitamin D3) 1,000 unit PO QAM 12/04/18 12/04/18 History [Vitamin D3] clonazepam 0.5 mg PO DAILY 12/04/18 12/04/18 History dextran 70-hypromellose 1 drp OPHTHALMIC (EYE) DAILY 12/04/18 12/04/18 History docusate sodium 100 mg PO BID 12/04/18 12/04/18 History pramipexole 0.25 mg PO BID 12/04/18 12/04/18 History Patient History Medical History Atrial fibrillation (Chronic) H/O malignant neoplasm of breast (Chronic) H/O cancer of uterus (Chronic) Congestive heart failure (Chronic) Benign colonic polyp (Chronic) Carotid stenosis (Chronic) Cervical radiculopathy (Chronic) Chronic kidney disease (Chronic) Depression with anxiety (Chronic) Disc degeneration, lumbar (Chronic) Gastro-esophageal reflux disease without esophagitis (Chronic) Gait abnormality (Chronic) Glaucoma (Chronic) Hyperlipidemia (Chronic) Essential hypertension (Chronic) Hypomagnesemia (Chronic) Peripheral neuropathy (Chronic) Restless legs syndrome (Chronic) Rosacea (Chronic) Surgical History S/P cataract extraction S/P cholecystectomy S/P colonoscopy S/P cardiac cath S/P dilatation and curettage Status post hip replacement S/P knee replacement S/P hysterectomy History of mastectomy Social History Preferred Language: Tanzanian Communication Ability: Effective Associate Faculty Required: No Beliefs That Will Affect Care: None marital status: / Current Living Situation: Alone Other Information That Helps Us Care for You: No Feels Safe at Home: Yes Safety Concerns: Feels Safe At This Time Smoking Status: Never smoker Do You Dip or Chew Tobacco: No ; Second Hand Exposure: No ; Tobacco Cessation Education Requested by Patient: No Hx Alcohol Use: No Hx Substance Use: No Review of Systems Constitutional: no fever and no chills Eyes: no blind spots and no diplopia Ear, Nose, Mouth, Throat: no tinnitus and no hearing loss Respiratory: no cough and no dyspnea Cardiovascular: no chest pain and no palpitations Gastrointestinal: no nausea and no vomiting Genitourinary: no urinary incontinence Musculoskeletal: + back pain; no neck pain and no myalgia Integumentary: no rash and no lesions Neurologic: as per Subjective / HPI, + gait abnormality, + unsteadiness, + loss of sensation and + tremor(s); no seizure-like activity, no dizziness, no syncope, no headache(s), no abnormal speech, no confusion and no memory loss Psychiatric: + hallucinations; no depression and no anxiety Patient does admit to experiencing rare visual hallucinations, furry animals, non- distressing. No auditory hallucinations. Thinks she may have had 1 of these episodes last night. Hematologic / Lymphatic: no easy bleeding and no easy bruising Physical Exam Physical Exam: The patient is a well-developed, well-nourished elderly female. She is alert and fully oriented. Recent and remote memory intact. Attention and concentration normal. Patient exhibits a normal spontaneous speech pattern as well as an age-appropriate fund of knowledge and normal comprehension of vocabulary. Visual rodriguez full to confrontation. Visual acuity normal. Pupils equal round reactive to light and accommodation. Eye movements normal. There is no nystagmus, ptosis, or ophthalmoplegia. Facial sensation intact. There is no facial droop or weakness. Hearing intact. Palate elevates to midline. Shoulder shrug intact. Tongue protrudes to midline. There is a significant deficit to vibration and proprioception at the feet bilaterally. Temperature sensation and light touch otherwise intact for all 4 limbs. Deep tendon reflexes are diminished for the arms and legs bilaterally, absent at the Achilles tendons bilaterally. Plantar responses downgoing bilaterally. There is no dysdiadochokinesia or dysmetria with aqxkgh-lm-fdut or retg-ju-rqlb. However, patient does have considerable difficulty with flor-pa-swym bilaterally due to very poor movement initiation and development of muscular cramps in the legs. Further, she has a very significant coarse bilateral upper extremity postural and action tremor which renders her rxbbte-nr-czme interpretation somewhat difficult. She does perform the maneuver accurately bilaterally, however. Ophthalmoscopic examination reveals normal-appearing optic disks and posterior segments. No papilledema or hemorrhages. Carotid pulses normal bilaterally, no bruits to auscultation. Patient was able to stand up on her own at the side of the bed. No orthostatic dizziness. Posture flexed. Takes very slow cautious steps. Difficulty lifting the feet from the floor. Indicates that she is unable to feel the floor from under her. Muscle strength normal for all 4 limbs proximally and distally. No foot drop noted. Muscle tone normal throughout. No spasticity or rigidity. No atrophy. Patient has a rather coarse bilateral upper extremity resting and postural tremor, fairly symmetric. She does not have a classic pill-rolling resting tremor. She does not appear to have a significant associated head tremor or abnormal perioral movements. No tardive dyskinesia. No voice tremor. Results & Data Vital Signs (Past 12 Hours) Vital Signs Temp Pulse Resp BP Pulse Ox 12/05/18 08:16 36.8 C 89 20 149/80 H 94 12/05/18 03:00 36.7 C 103 H 20 150/78 H 93 12/04/18 23:57 36.2 C L 102 H 20 162/79 H 93 Laboratory Results WBC 4.90, hemoglobin 12.2, hematocrit 37.2, platelet count 132, sodium 136, potassium 4.5, BUN 36, creatinine 1.37, glucose 88, calcium 9.2, magnesium 1.8, AST 27, ALT 24, total CK 93, TSH 2.240 Labs done at [facility] this past July reviewed. JORGE L screen negative, rheumatoid factor negative, vitamin B12 level 601, ESR [address] of the head completed yesterday at [facility] is negative for hemorrhage or acute process. There is no hydrocephalus or significant parenchymal abnormality. I reviewed the images as well as the radiologist interpretation of this test. An MRI of the lumbar spine completed last month at [facility] revealed moderate multilevel central canal stenosis and associated varying degrees of foraminal stenosis on the basis of degenerative disc disease and arthritic change. An EMG completed on August 13, 2018, by Dr. 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 Electrocardiogram reveals atrial fibrillation, 85 bpm
--- NOTE | 2018-12-05 12:29 | Hospitalist Progress Note ---
Date of Service December 05, 2018 Assessment & Plan (1) Parkinsonian syndrome: Patient with worsening symptoms, has a known history of poorly controlled Parkinson's. I do appreciate the neurology consult along with medication changes as ordered. Gabapentin was decreased and primidone and Mirapex were discontinued. Patient was started on Sinemet. Spinal stenosis was also considered as the patient had some atypical features, and a MRI of her brain and cervical spine was ordered by neurology. (2) Generalized weakness: PT OT, likely for placement after their evaluation. (3) Multiple falls: Mechanical falls, appears to be related to patient issue due to persistent tremor and parkinsonian flareup. (4) Tremor: As above (5) Congestive heart failure: Clinically patient does not appear to be in overt congestive heart failure. To continue medications as per outpatient regimen. (6) Depression with anxiety: (7) Atrial fibrillation: Patient is subtherapeutic INR 1.4. Continue Coumadin 2 mg daily, monitor INR. Consider increasing dose if INR does not climb appropriately. (8) Hyperlipidemia: Lipid panel in a.m. Continue atorvastatin 20 mg p.o. daily (9) Depression: Stable ,continue nitrazepam 7.5 mg p.o. nightly, clonazepam 0.5 p.o. daily. (10) Anemia: Resolved. Appears to be stable with vitamin C 250 mg p.o. daily and FeroSul for 325 mg p.o. twice daily. H&H at this point 12.4/38.1 Subjective Patient is awake and alert. She is pleasant and in no distress. She does note that she has had worsening ambulation secondary to significant tremor. She has not yet been evaluated by PT/OT but is agreeable to rehab placement if indicated. Patient denies any chest pain, shortness breath, or other issues at this time. Review of Systems Review of Systems: All systems reviewed & are unremarkable except as noted in HPI & below Physical Exam Physical Exam: GENERAL: Non-toxic in appearance. INTEGUMENTARY: Warm, dry, and [place]. HEAD: Normocephalic. EYES: without scleral icterus or trauma. ENT/OROPHARYNX: clear and moist. LYMPHADENOPATHY/NECK: Is supple without lymphadenopathy or meningismus. RESPIRATORY: Lungs clear and equal. CARDIOVASCULAR: Regular rate and rhythm. GI/ABDOMEN: Soft and nontender. No organomegaly or pulsatile mass. No rebound or guarding. Normal bowel sounds. EXTREMITIES: Warm and well perfused. BACK: No CVA tenderness. NEUROLOGICAL: Moderate resting tremor PSYCHIATRIC: normal affect. MUSCULOSKELETAL: Normally developed with good muscle tone. Results & Data Vital Signs (Past 12 Hours) Vital Signs Temp Pulse Resp BP BP Pulse Ox 12/05/18 11:35 36.7 C 91 H 16 155/79 H 94 12/05/18 08:16 36.8 C 89 20 149/80 H 94 12/05/18 03:00 36.7 C 103 H 20 150/78 H 93 PG Care Time/CCT Total # of Minutes Spent Total Time Spent with Patient: Total time spent is greater than 50% in coordination of care (as documented) at patient's floor/unit and/or counseling patient:
[2018-12-05] MEDS: CARBIDOPA/LEVODOPA 25/100MG TAB PO SCH ×2 (13:04→20:36)
--- NOTE | 2018-12-05 14:33 | Magnetic Resonance Report ---
MR cervical spine wo con CLINICAL HISTORY: 88 years-old Female presenting with gait disorder, proprioceptive loss, history of Parkinson's disease, intermittent dizziness, history of stroke, r/o myelopathy. TECHNIQUE: Multisequence, multiplanar MR imaging of the cervical spine was performed without the use of intravenous contrast. IV contrast: None. COMPARISON: None. FINDINGS: Localizer images: Unremarkable. Normal cervical lordosis. Vertebral bodies maintain normal height, alignment, and bone marrow signal intensity. Diffuse intervertebral disc desiccation with mild height loss at C4-5. Additional multilev el degenerative changes further detail below: C2-3: No sac and spinal canal or neural foraminal narrowing. C3-4: Trace disc osteophyte complex minimally effaces the ventral thecal sac. Uncovertebral hypertrop hy on the right results in mild right neural foraminal narrowing. C4-5: Disc osteophyte complex moderately effaces the ventral thecal sac and contours the anterior spi nal cord more so on the left. Moderate bilateral lateral recess effacement. Uncovertebral hypertrophy results in mild to moderate bilateral neural foraminal narrowing. C5-6: Trace disc osteophyte complex with mild effacement of the ventral thecal sac. No significant ne ural foraminal narrowing. C6-7: No significant spinal canal or neural foraminal narrowing. C7-T1: No significant spinal canal or neural foraminal narrowing. Cervical spine maintains normal morphology and signal intensity throughout apart from the contouring defect at C4-5. No evidence of myelomalacia or spinal cord edema. Radius cervical junction normal. No epidural collection. No paraspinal muscle edema. Vasculature grossly patent. Remaining visualized so ft tissues within normal limits. IMPRESSION: 1. Multilevel degenerative changes most significant at C4-5, where there is moderate spinal canal st enosis and contouring of the spinal cord. Spinal cord impingement is considered unlikely. No myelomal acia or spinal cord edema. Neural foraminal narrowing most significant at this level. Electronically signed by: Tim Monreal M.D. 12/05/2018 2:31 PM
--- NOTE | 2018-12-05 14:41 | Magnetic Resonance Report ---
MRI OF THE BRAIN WITHOUT IV CONTRAST CLINICAL HISTORY: Dizziness. Multi system atrophy. Parkinsonism. COMPARISON STUDY: CT of the brain dated 12/04/2018. TECHNIQUE: MRI of the brain was performed utilizing various T1 and T2-weighted sequences in the axial , sagittal, and coronal planes. IV contrast was not administered for this examination. FINDINGS: Brain parenchyma: There is age-related involutional change noting mild to moderate patchy subcortical and periventricular microangiopathic disease. There is no hemorrhage or mass effect. There is no res tricted diffusion to suggest acute ischemia. Mclean-white matter differentiation is preserved. No extra -axial fluid collection is seen. The cerebellar tonsils are normal in configuration. Ventricles, sulci, and cisterns: Prominent secondary to involutional change. Cavum septum pellucidum is incidentally noted. Pituitary and sella: Unremarkable. Intracranial vasculature: Normal flow voids are maintained at the skull base. Orbits: The bony orbits are grossly intact. Orbital contents are normal in appearance noting bilatera l ocular lens implants. Sinuses and mastoids: The paranasal sinuses are clear. There is a small left mastoid effusion. Calvarium: Unremarkable. Cervical cord: Partially visualized cervical spinal cord is normal in morphology and signal intensity . IMPRESSION: No acute intracranial abnormality is identified. Electronically signed by: Brain Yan M.D. 12/05/2018 2:39 PM
[2018-12-05] MEDS: WARFARIN SOD 2 MG TAB PO SCH (16:52)
[2018-12-05] MEDS: TRAVOPROST Z 0.004% OPH SOLN 2.5 ML BTL OPB SCH (20:36)
[2018-12-05] MEDS: MIRTAZAPINE TAB 15 MG TAB PO SCH (20:37)
[2018-12-06 06:24] LABS: Basophils # (auto) 0.02 K/uL (0-0.2); Basophils % (auto) 0.4 %; Eosinophils # (auto) 0.34 K/uL (0-0.5); Eosinophils % (auto) 6.4 %; Hematocrit (blood only) 39.8 % (37-47); Immature Granulocytes # (auto) 0.01 K/uL (0.00-0.02); Immature Granulocytes % (auto) 0.2 %; Lymphocytes # (auto) 1.41 K/uL (1.2-3.4); Lymphocytes % (auto) 26.4 %; Mean Corpuscular Hemoglobin 31.4 pg (25-34); Mean Corpuscular Hgb Conc 32.7 g/dL (32-36); Mean Corpuscular Volume 96.1 fL (80-100); Mean Platelet Volume 11.6 fL (7.4-10.4); Monocytes # (auto) 0.68 K/uL (0.11-0.59); Monocytes % (auto) 12.7 %; Neutrophils # (auto) 2.88 K/uL (1.4-6.5); Neutrophils % (auto) 53.9 %; Platelet Count 151 K/uL (130-400); RDW Coefficient of Variation 13.7 % (11.5-14.5); RDW Standard Deviation 48.1 fL (36.4-46.3); Red Blood Count 4.14 M/uL (4.2-5.4); White Blood Count 5.34 K/uL (4.8-10.8)
[2018-12-06 06:43] LABS: INR 1.3 (0.9-1.1); Prothrombin Time 13.1 Seconds (9.0-12.0)
[2018-12-06 07:03] LABS: Albumin Level 4.1 gm/dl (3.4-5.0); BUN Creatinine Ratio 28.9 (10-20); Calcium 9.7 mg/dl (8.5-10.1); Creatinine Clr Calc Pharmacy 27.9 ml/min; Est GFR (African American) 33.2; Est GFR (Non-African American) 28.7; Potassium 4.5 mmol/L (3.5-5.1)
[2018-12-06 07:06] LABS: Albumin Globulin Ratio 1.2 (0.9-2); Bilirubin,Total 0.4 mg/dl (0.2-1); Globulin 3.4 gm/dl (2.5-4.0); Total Protein 7.5 gm/dl (6.4-8.2)
[2018-12-06] MEDS: CARBIDOPA/LEVODOPA 25/100MG TAB PO SCH ×3 (08:03→20:36)
[2018-12-06] MEDS: FERROUS SULFATE 325 MG TAB PO SCH ×2 (08:03→20:36)
[2018-12-06] MEDS: clonazePAM 0.5 MG TAB PO SCH (08:03)
[2018-12-06] MEDS: CALCIUM 600MG + VIT D 400 IU TAB PO SCH ×2 (08:04→20:36)
[2018-12-06] MEDS: ATORVASTATIN 20 MG TAB PO SCH (08:04)
[2018-12-06] MEDS: DOCUSATE SODIUM 100 MG CAP PO SCH ×2 (08:04→20:36)
[2018-12-06] MEDS: PANTOprazole 40 MG TAB PO SCH (08:04)
[2018-12-06] MEDS: GABAPENTIN 100 MG CAP PO SCH ×2 (08:04→20:36)
[2018-12-06] MEDS: CHOLECALCIFEROL 1,000 UNITS TAB PO SCH (08:04)
[2018-12-06] MEDS: AMLODIPINE BESYLATE 5 MG TAB PO SCH (08:04)
[2018-12-06] MEDS: MULTIVITAMIN TAB PO SCH (08:04)
[2018-12-06] MEDS: ASCORBIC ACID 500 MG TAB PO SCH (08:05)
[2018-12-06] MEDS: LETROZOLE 2.5 MG TAB PO SCH (08:05)
[2018-12-06] MEDS: FUROSEMIDE 20 MG TAB PO SCH (08:05)
[2018-12-06] MEDS: METOPROLOL SUCC 50MG EXT REL TAB PO SCH (08:05)
[2018-12-06] MEDS: MAGNESIUM OXIDE 400 MG TAB PO SCH (08:05)
[2018-12-06] MEDS: lisinopriL 10 MG TAB PO SCH (08:05)
[2018-12-06] MEDS: CALCITRIOL 0.25 MCG CAPSULE PO SCH (08:05)
[2018-12-06] MEDS: ARTIFICIAL TEARS OPB SCH (08:06)
--- NOTE | 2018-12-06 09:49 | Hospitalist Progress Note ---
Date of Service December 06, 2018 Assessment & Plan (1) Parkinsonian syndrome: Patient with worsening symptoms, has a known history of poorly controlled Parkinson's. Patient was found to have some cervical spinal stenosis with may be contributing. She was started on Sinemet yesterday by neurology which also may be helping. Her gabapentin was decreased and Mirapex pramipexole were both discontinued. Will await neurology follow-up. (2) Generalized weakness: Reviewed PT, recommending 24/7 supervision, ideally at acute rehab. OT recommendations are still pending. Case management to discuss with family regarding eventual discharge to acute rehab. I did also speak to them yesterday afternoon, I told them that patient is likely been over the weekend while insurance approval is obtained. They are in agreement that the patient will likely require at least short-term rehab placement. (3) Multiple falls: Mechanical falls, appears to be related to patient issue due to persistent tremor and parkinsonian flareup. (4) Tremor: As above (5) Congestive heart failure: Clinically patient does not appear to be in overt congestive heart failure. To continue medications as per outpatient regimen. (6) Depression with anxiety: (7) Atrial fibrillation: Patient is subtherapeutic INR 1.4. Continue Coumadin 2 mg daily, monitor INR. Consider increasing dose if INR does not climb appropriately. (8) Hyperlipidemia: Continue atorvastatin 20 mg p.o. daily (9) Depression: Stable ,continue nitrazepam 7.5 mg p.o. nightly, clonazepam 0.5 p.o. daily. (10) Anemia: Resolved. Appears to be stable with vitamin C 250 mg p.o. daily and FeroSul for 325 mg p.o. twice daily. We will recheck CBC and check iron studies. Patient's iron stores are adequate, we can consider discontinuing supplementation. Subjective Patient was asleep but easily arousable. She tells me that her tremor is calm down somewhat. It is unclear if this is secondary to medication changes or the fact that she is more relaxed now. Patient expresses no complaints but she does tell me that she has ongoing constipation which she attributes to her iron supplementation. I do see that her CBC has been normal with a normal MCV. Review of Systems Review of Systems: All systems reviewed & are unremarkable except as noted in HPI & below Physical Exam Physical Exam: GENERAL: Non-toxic in appearance. INTEGUMENTARY: Warm, dry, and [place]. HEAD: Normocephalic. EYES: without scleral icterus or trauma. ENT/OROPHARYNX: clear and moist. LYMPHADENOPATHY/NECK: Is supple without lymphadenopathy or meningismus. RESPIRATORY: Lungs clear and equal. CARDIOVASCULAR: Regular rate and rhythm. GI/ABDOMEN: Soft and nontender. No organomegaly or pulsatile mass. No rebound or guarding. Normal bowel sounds. EXTREMITIES: Warm and well perfused. BACK: No CVA tenderness. NEUROLOGICAL: No apparent tremor at rest today but has a significant intention tremor. PSYCHIATRIC: normal affect. MUSCULOSKELETAL: Normally developed with good muscle tone. Results & Data Vital Signs (Past 12 Hours) Vital Signs Temp Pulse Pulse Resp BP Pulse Ox 12/06/18 07:56 36.8 C 70 20 130/73 97 12/06/18 06:05 74 12/06/18 03:54 36 C L 82 18 132/71 96 12/05/18 23:00 36 C L 76 18 118/70 93 PG Care Time/CCT Total # of Minutes Spent Total Time Spent with Patient: Total time spent is greater than 50% in coordination of care (as documented) at patient's floor/unit and/or counseling patient:
--- NOTE | 2018-12-06 10:16 | Neurology Progress Note ---
Date of Service December 06, 2018 Assessment & Plan (1) Multiple system atrophy with predominant parkinsonism: As described previously, I suspect this patient has multiple systems atrophy with predominant parkinsonian features. 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 MSAs suspected due to her initial symptomatology which consisted of gait and postural instability rather than a unilateral pill-rolling resting tremor. Furthermore, she has a significant polyneuropathy with probably an element of associated sensory ataxia as well. She may have an element of autonomic nervous system dysfunction as she does have some constipation but does not complain of orthostatic dizziness. Again, her tremor is a bit coarse and symmetric and seems somewhat atypical for a standard pill-rolling parkinsonian tremor. Also, her tremor is more of a recent development and is occurring quite some time after onset of gait and postural instability. Of note, however, she has complained of some non-distressing visual hallucinations which oftentimes occurs in Parkinson's disease and also dementia with Lewy bodies. As described previously, she is not really demented, however. is probably unlikely. Her recently completed imaging including MRI of the brain and cervical spine are generally unremarkable in the context of her parkinsonism/MSA variant. No other potential diagnoses supported as suggested on imaging. She does have an element of mild cervical spinal stenosis, but nothing that I think we need to be addressed surgically, at least at this time. Finally, the patient does seem to be responding to a small dose of Sinemet thus far. I would recommend that she continue with Sinemet 1/2 tablet taken 3 times per day, for the next week or so. After which, she may increase the dosage to 1 whole tablet 3 times per day. I would like to see her for follow-up in my [facility] clinic. No further immediate recommendations. Subjective Follow-up for parkinsonian syndrome The patient is an 88-year-old female with a history of chronic progressive gait dysfunction, polyneuropathy, and later development of a bilateral upper extremity resting and postural tremor, who is been admitted with recurrent falls and subacute functional decline. Please see my consultation from yesterday for further details. I had recommended discontinuing her primidone and pramipexole yesterday and had also reduced her dosage of gabapentin. She does have an element of lumbar spinal stenosis and perhaps mild chronic neuropathic pain as well. This issue has been stable. I also recommended starting a trial of low- dose Sinemet. She is currently taking 1/2 tablet 3 times per day. This medication has perhaps been slightly helpful in controlling her tremor which does appear to be modestly improved this morning. The patient does admit that she feels somewhat better compared with yesterday. Additional details as below. Review of Systems Constitutional: no fever and no chills Musculoskeletal: + back pain; no myalgia Neurologic: as per Subjective / HPI and + tremor(s); no seizure-like activity, no dizziness, no headache(s), no abnormal speech, no confusion and no memory loss Physical Exam Physical Exam: The patient is alert and fully oriented. Recent and remote memory intact. Attention and concentration normal. Patient is up to normal spontaneous speech pattern as well as an age-appropriate fund of knowledge normal combination of vocabulary. Visual rodriguez full to confrontation. Visual acuity normal. Pupils equal round react to light and accommodation. Eye movements normal. There is no ptosis, nystagmus, or ophthalmoplegia. There is no facial droop or weakness. Hearing intact. Palate elevates to midline. Shoulder shrug intact. Tongue protrudes to midline. Patient exhibits a mild bilateral upper extremity resting and postural tremor. She does not have a classic pill-rolling resting tremor. No rigidity. Patient exhibits normal muscle strength for all 4 limbs proximally and distally. She is not bradykinetic rigid. Results & Data Vital Signs (Past 12 Hours) Vital Signs Temp Pulse Pulse Resp BP Pulse Ox 12/06/18 07:56 36.8 C 70 20 130/73 97 12/06/18 06:05 74 12/06/18 03:54 36 C L 82 18 132/71 96 12/05/18 23:00 36 C L 76 18 118/70 93 Diagnostic Findings MRI of the brain completed yesterday negative for acute or subacute process. There is a moderate degree of patchy subcortical and periventricular microangiopathic change. No hydrocephalus. I reviewed the images as well as the radiologist interpretation of this test. Cervical spine MRI completed yesterday reveals multilevel degenerative changes most significant at C4-5 with moderate central canal stenosis at that level. No spinal cord impingement. No associated myelomalacia within the spinal cord. I reviewed the images as well as the radiologist interpretation of this test.
[2018-12-06] MEDS: WARFARIN SOD 3 MG TAB PO SCH (15:36)
[2018-12-06] MEDS: MIRTAZAPINE TAB 15 MG TAB PO SCH (20:36)
[2018-12-06] MEDS: TRAVOPROST Z 0.004% OPH SOLN 2.5 ML BTL OPB SCH (20:37)
[2018-12-07 06:17] LABS: Basophils # (auto) 0.01 K/uL (0-0.2); Basophils % (auto) 0.2 %; Eosinophils # (auto) 0.41 K/uL (0-0.5); Eosinophils % (auto) 7.7 %; Hematocrit (blood only) 37.8 % (37-47); Hemoglobin 12.2 g/dL (12.0-16.0); Immature Granulocytes # (auto) 0.01 K/uL (0.00-0.02); Immature Granulocytes % (auto) 0.2 %; Lymphocytes % (auto) 31.9 %; Mean Corpuscular Hemoglobin 31.4 pg (25-34); Mean Corpuscular Hgb Conc 32.3 g/dL (32-36); Mean Corpuscular Volume 97.4 fL (80-100); Mean Platelet Volume 11.5 fL (7.4-10.4); Monocytes # (auto) 0.78 K/uL (0.11-0.59); Monocytes % (auto) 14.6 %; Neutrophils # (auto) 2.42 K/uL (1.4-6.5); Neutrophils % (auto) 45.4 %; Platelet Count 139 K/uL (130-400); RDW Coefficient of Variation 13.9 % (11.5-14.5); RDW Standard Deviation 49.5 fL (36.4-46.3); Red Blood Count 3.88 M/uL (4.2-5.4); White Blood Count 5.33 K/uL (4.8-10.8)
[2018-12-07 06:41] LABS: INR 1.4 (0.9-1.1); Prothrombin Time 13.9 Seconds (9.0-12.0)
[2018-12-07 06:48] LABS: Albumin Globulin Ratio 1.1 (0.9-2); Albumin Level 3.5 gm/dl (3.4-5.0); BUN Creatinine Ratio 28.6 (10-20); Bilirubin,Total 0.4 mg/dl (0.2-1); Calcium 9.6 mg/dl (8.5-10.1); Creatinine Clr Calc Pharmacy 23.6 ml/min; Est GFR (African American) 27.2; Est GFR (Non-African American) 23.4; Globulin 3.2 gm/dl (2.5-4.0); Potassium 5.1 mmol/L (3.5-5.1); Total Protein 6.7 gm/dl (6.4-8.2)
[2018-12-07 06:53] LABS: Ferritin 321.9 ng/ml (8-388)
[2018-12-07] MEDS: ASCORBIC ACID 500 MG TAB PO SCH (08:41)
[2018-12-07] MEDS: ARTIFICIAL TEARS OPB SCH (08:41)
[2018-12-07] MEDS: FUROSEMIDE 20 MG TAB PO SCH (08:41)
[2018-12-07] MEDS: ATORVASTATIN 20 MG TAB PO SCH (08:41)
[2018-12-07] MEDS: PANTOprazole 40 MG TAB PO SCH (08:41)
[2018-12-07] MEDS: MAGNESIUM OXIDE 400 MG TAB PO SCH (08:41)
[2018-12-07] MEDS: lisinopriL 10 MG TAB PO SCH (08:41)
[2018-12-07] MEDS: LETROZOLE 2.5 MG TAB PO SCH (08:42)
[2018-12-07] MEDS: METOPROLOL SUCC 50MG EXT REL TAB PO SCH (08:42)
[2018-12-07] MEDS: MULTIVITAMIN TAB PO SCH (08:42)
[2018-12-07] MEDS: DOCUSATE SODIUM 100 MG CAP PO SCH ×2 (08:42→20:41)
[2018-12-07] MEDS: FERROUS SULFATE 325 MG TAB PO SCH ×2 (08:42→20:38)
[2018-12-07] MEDS: CALCITRIOL 0.25 MCG CAPSULE PO SCH (08:42)
[2018-12-07] MEDS: CARBIDOPA/LEVODOPA 25/100MG TAB PO SCH ×3 (08:42→20:39)
[2018-12-07] MEDS: GABAPENTIN 100 MG CAP PO SCH ×2 (08:42→20:37)
[2018-12-07] MEDS: AMLODIPINE BESYLATE 5 MG TAB PO SCH (08:43)
[2018-12-07] MEDS: CALCIUM 600MG + VIT D 400 IU TAB PO SCH ×2 (08:43→20:39)
[2018-12-07] MEDS: CHOLECALCIFEROL 1,000 UNITS TAB PO SCH (08:43)
[2018-12-07] MEDS: clonazePAM 0.5 MG TAB PO SCH (08:44)
--- NOTE | 2018-12-07 09:56 | Neurology Progress Note ---
Date of Service December 07, 2018 Assessment & Plan (1) Multiple system atrophy with predominant parkinsonism: Atypical parkinsonism versus multiple systems atrophy with parkinsonian features. At this point, given lack of significant side effects with low-dose Sinemet, but perhaps only minimal response, I would like to increase her dosage to a full 25/100 mg tablet 3 times per day. Remain off pramipexole and primidone. Continue with low-dose gabapentin for the time being. Patient may follow-up with me in the [facility] clinic. 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 She has been admitted with recurrent falls and subacute decline in gait function. Please see my initial consult in yesterday's progress note for further details. She has been tolerating a low-dose of Sinemet which was started during this hospitalization. Mirapex and primidone have been discontinued and her gabapentin dosage reduced as well. Difficult to say how much benefit the Sinemet has been conferring at this point in time of the dosage is quite low. Again, no particular side effects reported. No further visual hallucinations reported. Disposition pending, will probably go to short-term rehab. Physical Exam Physical Exam: The patient is alert and fully oriented. Memory, attention, and concentration are normal. Patient exhibits a normal spontaneous speech pattern as well as normal comprehension of vocabulary. Visual rodriguez full to confrontation. Visual acuity normal. Pupils equal round react to light and acc ommodation. Eye movements normal. There is no nystagmus, ptosis, or ophthalmoplegia. There is no facial droop. Tongue and palate midline. Patient continues to exhibit a coarse bilateral upper extremity resting and postural tremor. She does not have a typical pill-rolling resting tremor. Muscle tone normal. Strength for all 4 limbs normal. She is not bradykinetic rigid. Results & Data Vital Signs (Past 12 Hours) Vital Signs Temp Pulse Resp BP BP Pulse Ox 12/07/18 07:55 36.5 C 88 20 125/64 97 12/06/18 23:59 36.4 C L 84 18 112/67 95
--- NOTE | 2018-12-07 12:14 | Hospitalist Progress Note ---
Date of Service December 07, 2018 Assessment & Plan (1) Parkinsonian syndrome: Patient with worsening symptoms, has a known history of poorly controlled Parkinson's. Patient was found to have some cervical spinal stenosis with may be contributing. I do appreciate neurology follow-up, Sinemet was increased to full dose. We will continue to monitor for side effects and effectiveness. (2) Generalized weakness: Reviewed PT, recommending 24/7 supervision, ideally at acute rehab. OT recommendations are still pending. Case management to discuss with family regarding eventual discharge to acute rehab. Patient is agreeable to rehab versus retirement, we will monitor effect with Sinemet over the next 24 hours, await insurance approval bed availability for discharge. (3) Multiple falls: Mechanical falls, appears to be related to patient issue due to persistent tremor and parkinsonian flareup. (4) Tremor: As above (5) Congestive heart failure: Clinically patient does not appear to be in overt congestive heart failure. To continue medications as per outpatient regimen. (6) Depression with anxiety: (7) Atrial fibrillation: Patient is subtherapeutic INR 1.4. Coumadin was increased to 3 mg yesterday, will continue to monitor daily and adjust further as needed. (8) Hyperlipidemia: Continue atorvastatin 20 mg p.o. daily (9) Depression: Stable ,continue nitrazepam 7.5 mg p.o. nightly, clonazepam 0.5 p.o. daily. (10) Anemia: Resolved. Appears to be stable with vitamin C 250 mg p.o. daily and FeroSul for 325 mg p.o. twice daily. We will recheck CBC and check iron studies. Patient's iron stores are adequate, we can consider discontinuing supplementation. Subjective Patient seen with family at bedside. Patient is awake and alert. She is in a chair. She still has significant resting tremor in her upper extremities. Otherwise she expresses no complaints and feels well. Review of Systems Review of Systems: All systems reviewed & are unremarkable except as noted in HPI & below Physical Exam Physical Exam: GENERAL: Non-toxic in appearance. INTEGUMENTARY: Warm, dry, and [place]. HEAD: Normocephalic. EYES: without scleral icterus or trauma. ENT/OROPHARYNX: clear and moist. LYMPHADENOPATHY/NECK: Is supple without lymphadenopathy or meningismus. RESPIRATORY: Lungs clear and equal. CARDIOVASCULAR: Regular rate and rhythm. GI/ABDOMEN: Soft and nontender. No organomegaly or pulsatile mass. No rebound or guarding. Normal bowel sounds. EXTREMITIES: Warm and well perfused. BACK: No CVA tenderness. NEUROLOGICAL: Significant resting tremor involving the right lateral upper extremities PSYCHIATRIC: normal affect. MUSCULOSKELETAL: Normally developed with good muscle tone. Results & Data Vital Signs (Past 12 Hours) Vital Signs Temp Pulse Resp BP Pulse Ox 12/07/18 07:55 36.5 C 88 20 125/64 97 PG Care Time/CCT Total # of Minutes Spent Total Time Spent with Patient: Total time spent is greater than 50% in coordination of care (as documented) at patient's floor/unit and/or counseling patient:
[2018-12-07] MEDS: WARFARIN SOD 3 MG TAB PO SCH (16:07)
[2018-12-07] MEDS: MIRTAZAPINE TAB 15 MG TAB PO SCH (20:38)
[2018-12-07] MEDS: TRAVOPROST Z 0.004% OPH SOLN 2.5 ML BTL OPB SCH (20:39)
[2018-12-07 23:31] VITALS: TEMP 97.5
[2018-12-08 06:36] LABS: INR 1.4 (0.9-1.1); Prothrombin Time 14.3 Seconds (9.0-12.0)
[2018-12-08 07:37] VITALS: O2SAT 98
[2018-12-08] MEDS: DOCUSATE SODIUM 100 MG CAP PO SCH (07:55)
[2018-12-08] MEDS: ARTIFICIAL TEARS OPB SCH (07:55)
[2018-12-08] MEDS: AMLODIPINE BESYLATE 5 MG TAB PO SCH (07:56)
[2018-12-08] MEDS: CARBIDOPA/LEVODOPA 25/100MG TAB PO SCH ×2 (07:56→14:21)
[2018-12-08] MEDS: CHOLECALCIFEROL 1,000 UNITS TAB PO SCH (07:56)
[2018-12-08] MEDS: CALCIUM 600MG + VIT D 400 IU TAB PO SCH (07:56)
[2018-12-08] MEDS: ASCORBIC ACID 500 MG TAB PO SCH (07:57)
[2018-12-08] MEDS: FERROUS SULFATE 325 MG TAB PO SCH (07:57)
[2018-12-08] MEDS: GABAPENTIN 100 MG CAP PO SCH (07:57)
[2018-12-08] MEDS: MULTIVITAMIN TAB PO SCH (07:58)
[2018-12-08] MEDS: LETROZOLE 2.5 MG TAB PO SCH (07:58)
[2018-12-08] MEDS: MAGNESIUM OXIDE 400 MG TAB PO SCH (07:58)
[2018-12-08] MEDS: CALCITRIOL 0.25 MCG CAPSULE PO SCH (07:59)
[2018-12-08] MEDS: FUROSEMIDE 20 MG TAB PO SCH (07:59)
[2018-12-08] MEDS: ATORVASTATIN 20 MG TAB PO SCH (07:59)
[2018-12-08] MEDS: PANTOprazole 40 MG TAB PO SCH (07:59)
[2018-12-08] MEDS: lisinopriL 10 MG TAB PO SCH (07:59)
[2018-12-08] MEDS: METOPROLOL SUCC 50MG EXT REL TAB PO SCH (08:00)
[2018-12-08] MEDS: clonazePAM 0.5 MG TAB PO SCH (08:02)
--- NOTE | 2018-12-08 15:20 | Discharge Summary ---
Date of Service December 08, 2018 Admission HPI Per Admitting Provider Patient is a 88 years old female with past medical history of hypertension, hyperlipidemia, peripheral neuropathy, restless leg syndrome, status post hysterectomy for cancer, status post mastectomy, A. fib's for breast cancer lumbar disc degeneration, chronic kidney disease, who presents to the emergency department for evaluation of intermittent episodes of falls for the past 3 days and worsening tremor. Patient and her family states that patient was diagnosed recently with parkinsonian disease and she was given Mirapex 0.25 mg last week and since then patient started to have severe shaking with flailing. Patient is pleasant and appropriately representing herself even though she has stuttering which she said started after she was placed on this new medicine. Patient has atrial fibrillation and she takes warfarin 2 mg p.o. daily for that. Patient denies fever, chills, headache, chest pain, shortness of breath, frequency, urgency, hematuria, dysuria, syncope, near syncope. Labs are reviewed white bl ood cell 5.13, hemoglobin 12.4, hematocrit 38.1, platelets 147, PT 14, INR 1.4, sodium 136, potassium 4.5, chloride 97, anion gap 7, BUN 38, creatinine 1.66, GFR 27.4, BNP 2022, TSH 2.24, troponin less than 0.015. Urine positive for trace leukocytes esterase and 5-10 white blood cells. No bacteria found in urine. CT of the head no acute intracranial abnormality. Mild age-related atrophy and chronic small vessel changes. Decision was made to admit patient to [facility] with telemetry on observation for further management and treatment of flare up of Parkinson disease or parkinsonian-like syndrome with flailing tremor and urinary tract infection. Principal Diagnosis Parkinson's disease with ambulatory dysfunction Discharge Exam Constitutional WD/WN, vitals as above Eyes PERRL, conjunctivae normal, anicteric sclerae ENMT external ear and nose normal, oropharynx normal Neck trachea midline, no thyromegaly Respiratory normal respiratory effort, lungs clear to auscultation Cardiovascular RRR, no murmur, no edema Gastrointestinal (Abdomen) normal bowel sounds, soft, nontender, no hepatosplenomegaly Musculoskeletal no cyanosis or clubbing, extremities motor strength 5/5 Skin no rashes, warm and dry Neurologic patellar DTR's 2+ bilat, sensation intact and PERRL, EOMI, accommodation nl, no face palsy, no dysarthria Motor/Sensory: + tremor (resting tremor bilataral hands/arms) Psychiatric A+Ox3, euthymic affect Lymphatic no cervical or axillary lymphadenopathy Discharge Data Allergies Allergy/AdvReac Type Severity Reaction Status Date / Time citalopram Allergy Verified 12/04/18 10:35 cortisone Allergy Verified 12/04/18 10:35 Consultations 12/04/18 12:06 ED Decision to Admit Stat 12/04/18 14:47 Consult Neurology Routine Ordered Studies 12/04/18 10:01 CT head/brain wo con Stat 12/05/18 10:31 MR brain wo con Routine MR cervical spine wo con Routine Hospital Course (1) Parkinsonian syndrome: Patient with worsening symptoms, has a known history of poorly controlled Parkinson's Sinemet increased to 25/100mg TID watch for improvement in symptoms, can follow up with [facility] neurology in one month stopped Pramipexole and Primidone (2) Generalized weakness: Reviewed PT, recommending / supervision, ideally at acute rehab. will go to [facility] for rehab (3) Multiple falls: Mechanical falls, appears to be related to patient issue due to persistent tremor and parkinsonian flareup. Sinemet as above, look for improvements in balance and strength at [facility] (4) Tremor: As above (5) Congestive heart failure: Clinically patient does not appear to be in overt congestive heart failure (6) Atrial fibrillation: Patient is subtherapeutic INR 1.3. Coumadin was increased to 3 mg daily recommend repeating INR on 12/10 at [facility] (7) Hyperlipidemia: Continue atorvastatin 20 mg p.o. daily (8) Depression: Stable ,continue nitrazepam 7.5 mg p.o. nightly, clonazepam 0.5 p.o. daily. (9) Anemia: Resolved. Appears to be stable with vitamin C 250 mg p.o. daily and FeroSul for 325 mg p.o. twice daily. We will recheck CBC and check iron studies. Patient's iron stores are adequate. Will recommend holding Ferrous Sulfate for time being as she was getting constipated can follow up with Dr. Gunderson Total Time Total Time Spent Total Time Spent (In Minutes): 35 minutes Total Time Includes: Examination of the Patient, Discharge Planning, Medication Reconciliation and Communication With Other Providers Discharge Plan Discharge Items Patient Disposition: Transfer Detention Fac Reason For Visit: PARKINSON FLARE UP Discharge Diagnosis: Parkinson's disease with worsening ambulatory dysfunction Cervical spinal stenosis Iron deficiency anemia Condition on Discharge: Good Goals: improve function and independence improve disease control with Parkinson's Activity: Resume your previous activity Bathing: No limitations Exercise/Sports: Gradually increase as tolerated Non-emergency contact: Primary Care Provider and Neurologist Call non-emergency contact if: you have any medication questions, your symptoms worsen and you have a fever Follow-up/Referrals: Emily Gunderson MD [Primary Care Provider] - Diet: Heart Healthy Addtl Attending Provider Instructions: Medications: - SINEMET: 25/100mg take one tablet three times a day - COUMADIN: dose increased from 2mg daily to 3mg daily due to low INR - GABAPENTIN: dose decreased from 200mg twice a day to 100mg twice a day - FERROUS SULFATE: stopped for time being as her iron stores are adequate, dealing with some constipation - PRIMIDONE and PRAMIPEXOLE: both stopped per direction of neurology Parkinson's disease with frequent falls, ambulatory dysfunction Sinemet started, dose increased per neurology to 25/100mg TID continue this for next month follow up with [facility] neurology in one month, Dr. Recinos will go to SNF for rehab Atrial fibrillation on Coumadin INR is still low at 1.3, her dose of Coumadin was increased to 3mg daily please check INR on Sunday 12/10 FOLLOW UP - physician at [facility] this week - Dr. Recinos, neurology in one month - Dr. Gunderson in one week after d/c from rehab Pending Studies at Discharge: No Stand-Alone Forms: My [facility] Skilled Items Patient informed of condition?: Yes DNR: No Discharge Level of Care: Skilled Communicable Disease: No Discharge Prognosis: Stable Lines: None Urinary Catheter: No Medications and DC Order Prescriptions: New warfarin [Coumadin] 3 mg Tablet 3 mg PO DAILY@1600 30 Days Qty: 30 RF: 0 gabapentin 100 mg Capsule 100 mg PO BID 30 Days Qty: 60 RF: 0 carbidopa-levodopa 25-100 mg Tablet 1 tab PO TID 30 Days Qty: 90 RF: 1 Continued mirtazapine 7.5 mg tablet 7.5 mg PO HS Qty: 30 RF: 5 metoprolol succinate 50 mg tablet extended release 24 hr 50 mg PO DAILY Qty: 90 RF: 3 lisinopril 10 mg tablet 10 mg PO DAILY Qty: 90 RF: 3 calcitriol 0.25 mcg capsule 0.25 mcg PO DAILY Qty: 90 RF: 3 nitroglycerin 0.4 mg tablet, sublingual 0.4 mg SL Q5M PRN (Reason: chest pain) Qty: 25 RF: 1 furosemide 20 mg tablet 20 mg PO DAILY Qty: 90 RF: 3 magnesium oxide 400 mg magnesium capsule 400 mg PO DAILY Qty: 90 RF: 3 travoprost 0.004 % drops 1 drops OP .COMPLEX RF: 0 Centrum Silver Women 8 mg iron-400 mcg-300 mcg tablet 1 tab PO DAILY RF: 0 amlodipine 2.5 mg tablet 2.5 mg PO DAILY RF: 0 atorvastatin 20 mg tablet 20 mg PO DAILY RF: 0 esomeprazole magnesium 40 mg capsule,delayed release(DR/EC) 40 mg PO DAILY RF: 0 calcium carbonate-vitamin D3 600 mg(1,500mg) -400 unit tablet 1 tab PO BID RF: 0 letrozole 2.5 mg tablet 2.5 mg PO DAILY RF: 0 ascorbic acid (vitamin C) 250 mg tablet 250 mg PO DAILY RF: 0 clonazepam 0.5 mg Tablet 0.5 mg PO DAILY RF: 0 docusate sodium 100 mg Capsule 100 mg PO BID RF: 0 cholecalciferol (vitamin D3) [Vitamin D3] 1,000 unit Capsule 1,000 unit PO QAM RF: 0 dextran 70-hypromellose 0.1-0.3 % Drops 1 drp ophthalmic (eye) DAILY RF: 0 Quinine-Vitamin E Capsules 2 cap PO HS RF: 0 Discontinued primidone 50 mg tablet 50 mg PO HS RF: 0 ferrous sulfate 325 mg (65 mg iron) tablet 325 mg PO BID RF: 0 warfarin 2 mg tablet 2 mg PO DAILY Qty: 60 RF: 0 gabapentin 100 mg capsule 200 mg PO BID RF: 0 pramipexole 0.25 mg tablet 0.25 mg PO BID RF: 0 Discharge Orders: Discharge Order (Routine); Ordered 12/08/18 Ordered By: Pb Fatima Admission Data Admit Date/Time: 12/05/18 10:52 Attending Provider: Pb Fatima Admit Provider: Kahlil Anthony Primary Care Provider: Emily Gunderson Other Providers: Kahlil Anthony ; Chan Recinos
[2018-12-08 15:36] VITALS: BP 99/67; PULSE 78
[2018-12-08] MEDS: WARFARIN SOD 3 MG TAB PO SCH (16:30)
== END 2018-12-08 16:56 | DRG 57 ==
LOC: 2N 09:50 → ED 09:50 → SUATTDRO 13:20 → 2N 14:29 → SUATTDRO 12-05 10:52

== ENCOUNTER 2019-09-25 10:44 | Inpatient (IN) ==
[2019-09-25] MEDS ORDERED: SODIUM CHLORIDE 0.9% 1000ML 1,000 ML IV STA (11:37)
[2019-09-25 12:06] LABS: Basophils # (auto) 0.01 K/uL (0-0.2); Basophils % (auto) 0.2 %; Eosinophils # (auto) 0.15 K/uL (0-0.5); Eosinophils % (auto) 3.1 %; Hematocrit (blood only) 35.7 % (37-47); Hemoglobin 11.5 g/dL (12.0-16.0); Immature Granulocytes # (auto) 0.01 K/uL (0.00-0.02); Immature Granulocytes % (auto) 0.2 %; Lymphocytes # (auto) 1.27 K/uL (1.2-3.4); Lymphocytes % (auto) 26.2 %; Mean Corpuscular Hemoglobin 32.1 pg (25-34); Mean Corpuscular Hgb Conc 32.2 g/dL (32-36); Mean Corpuscular Volume 99.7 fL (80-100); Mean Platelet Volume 11.6 fL (7.4-10.4); Monocytes # (auto) 0.48 K/uL (0.11-0.59); Monocytes % (auto) 9.9 %; Neutrophils # (auto) 2.92 K/uL (1.4-6.5); Neutrophils % (auto) 60.4 %; Platelet Count 146 K/uL (130-400); RDW Standard Deviation 50.8 fL (36.4-46.3); Red Blood Count 3.58 M/uL (4.2-5.4); White Blood Count 4.84 K/uL (4.8-10.8)
[2019-09-25 12:25] LABS: Appearance Urine Clear (Clear); Bilirubin Urine Negative (Negative); Blood Urine Negative (Negative); Color Urine Yellow; Glucose Urine UA Negative (Negative); Ketones Urine Negative (Negative); Leukocyte Esterase Urine 3+ (Negative); Nitrite Urine Negative (Negative); Specific Gravity Urine 1.015 (1.000-1.030); Urobilinogen Urine Negative (Negative); pH Urine 7.5 (4.5-7.5)
[2019-09-25 12:34] LABS: Alanine Aminotransferase 9 U/L (12-78); Albumin Globulin Ratio 1.2 (0.9-2); Albumin Level 4.2 gm/dl (3.4-5.0); Alkaline Phosphatase 78 U/L (45-117); Aspartate Aminotransferase 21 U/L (15-37); BUN Creatinine Ratio 11.7 (10-20); Bilirubin,Total 0.5 mg/dl (0.2-1); Blood Urea Nitrogen 36 mg/dl (7-18); Calcium 12.6 mg/dl (8.5-10.1); Carbon Dioxide 33 mmol/L (21-32); Chloride 101 mmol/L (98-107); Globulin 3.5 gm/dl (2.5-4.0); Glucose 106 mg/dl (70-99); Lipase 116 U/L (73-393); Potassium 3.8 mmol/L (3.5-5.1); Sodium 139 mmol/L (136-145); Total Protein 7.7 gm/dl (6.4-8.2)
[2019-09-25 12:37] LABS: Protein Urine Trace (Negative)
[2019-09-25 12:39] LABS: Sulfosalicylic Acid Urine Positive (Negative)
[2019-09-25] MEDS ORDERED: SODIUM CHLORIDE 0.9% 1000ML 500 ML IV ONE (12:57)
[2019-09-25 12:58] LABS: Bacteria Urine 2+ (Negative); RBC Urine 0-4 /hpf (0-4)
--- NOTE | 2019-09-25 13:50 | History & Physical Report ---
Date of Service September 25, 2019 Assessment & Plan (1) Hypercalcemia: -Admit to [facility] with telemetry -Patient received NSS 2 L in the ER -Continue IV hydration -Possible that this is secondary to medication, however it is more likely that the patient has missed a few doses versus taking extra as her medications are done by pharmacy every Saturday and pill packs. -Check PTH, rule out other causes of hypercalcemia, alk phos is normal, history of uterine and breast cancer within the past 10 years, s/p total hysterectomy and left mastectomy, 1 year ago was told this was in remission -Hold calcitriol (2) Atrial fibrillation: -Chronic, follows with [facility] - on anticoagulation with Coumadin alternating doses of 3.75 and 2.5 - check INR now, follow with a.m. lab (3) Congestive heart failure: -Chronic diastolic CHF, appears euvolemic, continue Lasix daily (4) Essential hypertension: - Continue metoprolol 50 mg daily, lisinopril 5 mg daily - Hold furosemide 20 mg daily with IVFs (5) Hyperlipidemia: -Continue atorvastatin 20 mg daily (6) Anemia: -Takes iron tablets at home per her report, has had issues with constipation and hates taking them, recently needed to take a stool softener for bowel movement, last BM was 1 day ago. (7) Parkinson's disease: -Family reports this is parkinsonian-like syndrome with flailing tremor, continue Sinemet, PT/OT consult (8) Decubitus ulcer of left buttock, stage 2: -Wound consulted, PT/OT, frequent turning repo q2 (9) Chronic kidney disease: -Chronic, stage III/IV, creatinine elevated at 3.07, BUN 36 today, slightly higher than her baseline, trend with a.m. labs, IV hydration (10) Depression with anxiety: -History of such, continue clonazepam 0.5 mg daily (11) Gastro-esophageal reflux disease without esophagitis: - hx of such (12) Disc degeneration, lumbar: - chronic, continue calcitriol (13) Restless legs syndrome: - Hx of such, possible parkinsonian syndrom adding to issues - PT/OT (14) Peripheral neuropathy: - chronic, cont gabapentin 100 mg twice daily (15) DVT prophylaxis: - teds, Coumadin CODE: DNR Dispo: From home, likely to remain in the hospital through the weekend for placement in nursing facility, to assist with DC planning History of Present Illness Primary Care Provider: Emily Gunderson MD This is an 89 yo F with PMhx of A. fib, CHF, HTN, HLD, anemia, history of breast cancer and uterine cancer, Parkinson's disease, peripheral neuropathy, RLS, rosacea, transient cerebral ischemia who presents with abnormal labs identifying hypercalcemia with CA = 12.6. She admits to having recent falls, her most recent being last Saturday where she slid out of her lift chair onto the ground and hit both of her knees. [id number] at bedside reports that she has had increasing weakness over the last year, and that her falls have become more frequent. She does use a walker at baseline, however does not walk as much as she should, has a small sacral ulceration due to this, and has poor oral intake. She restricts her fluid intake because she does not want to have to get up and pee as often. Since falling last Saturday she feels that she has not quite been herself. She is agreeable to placement in nursing facility permanently. Patient denies any other acute complaints. Allergies Allergy/AdvReac Type Severity Reaction Status Date / Time cortisone Allergy Swelling Verified 09/25/19 13:20 of the Eye citalopram AdvReac Hallucinati Verified 09/25/19 13:20 ng Home Medications Home Medications Medication Instructions Recorded Confirmed Type letrozole 2.5 mg tablet 2.5 mg PO DAILY tab 09/19/18 09/25/19 History metoprolol succinate 50 mg 50 mg PO DAILY #90 tab 10/27/18 09/25/19 Rx tablet,extended release 24 hr nitroglycerin 0.4 mg sublingual 0.4 mg SL Q5M PRN #25 tab 11/20/18 09/25/19 Rx tablet furosemide 20 mg tablet 20 mg PO DAILY #90 tab 12/02/18 09/25/19 Rx travoprost 0.004 % eye drops 1 drops OP HS ml 12/30/18 09/25/19 History esomeprazole magnesium 40 mg 40 mg PO DAILY #90 cap 01/26/19 09/25/19 Rx capsule,delayed release calcitriol 0.25 mcg capsule 0.25 mcg PO DAILY #90 cap 04/16/19 09/25/19 Rx gabapentin 100 mg capsule 100 mg PO BID #60 cap 06/18/19 09/25/19 Rx carbidopa 25 mg-levodopa 100 mg 1 tab PO QID 30 Days #120 tab 07/28/19 09/25/19 Rx tablet lisinopril 5 mg tablet 5 mg PO DAILY #90 tab 07/29/19 09/25/19 Rx clonazepam 0.5 mg tablet 0.5 mg PO DAILY #30 tab 08/25/19 09/25/19 Rx mirtazapine 7.5 mg tablet 7.5 mg PO HS #30 tab 09/11/19 09/25/19 Rx atorvastatin 20 mg PO DAILY 09/25/19 09/25/19 History warfarin 2.5 mg PO SUTUWETHFRSA 09/25/19 09/25/19 History warfarin 3.75 mg PO MO 09/25/19 09/25/19 History Past Med/Surg History Medical History (Updated 09/25/19 @ 14:31 by Felisha Yeager PA-C) Actinic keratosis Anemia Atrial fibrillation Benign colonic polyp Carotid stenosis Cervical radiculopathy Chronic kidney disease Congestive heart failure Depression with anxiety Disc degeneration, lumbar Essential hypertension Gait abnormality Gastro-esophageal reflux disease without esophagitis Generalized weakness Glaucoma H/O cancer of uterus H/O malignant neoplasm of breast Hyperlipidemia Hypomagnesemia Multiple system atrophy with predominant parkinsonism Parkinson's disease Peripheral neuropathy Restless legs syndrome Rosacea Transient cerebral ischemia Surgical History History of breast biopsy History of mastectomy left S/P cardiac cath S/P cataract extraction bilateral S/P cholecystectomy S/P colonoscopy S/P dilatation and curettage S/P ear surgery S/P hysterectomy S/P knee replacement right Status post hip replacement left Family History Mother Stroke Social History Smoking Status: Never smoker Second Hand Exposure: No; Hx Alcohol Use: No Hx Substance Use: No Preferred Language: Israeli Communication Ability: Effective Powder Blender Required: No Beliefs That Will Affect Care: None marital status: / Current Living Situation: Alone Other Information That Helps Us Care for You: No Feels Safe at Home: Yes Safety Concerns: Feels Safe At This Time Review of Systems Review of Systems: Constitutional: No fever, sweats or chills Eyes: No diplopia, no worsening or blurred vision ENT: normal hearing, no trouble swallowing Respiratory: No cough, sputum, dyspnea at rest or on exertion Cardiovascular: No chest pain, tightness or palpitations Abdomen: No pain, nausea, vomiting, diarrhea or constipation Musculoskeletal: No joint pain, calf pain, swelling Neurologic: +Generalized weakness,+ frequent falls, no numbness/tingling,+balance problems Psychiatric: No anxiety or depression Skin: No rash or itch Physical Exam Physical Exam: General: awake, alert, no apparent distress, + pale Head: Normocephalic, atraumatic ENT: PERRL, EOMI, no pharyngeal exudate, mucous membranes moist Chest: Clear to auscultation, on room air, no adventitious breath sounds Cardiac: Irregularly irregular, rate controlled, no murmur, no JVD, normal peripheral pulses, good capillary refill Abdominal: NABS x 4 quadrants, soft, nondistended, nontender to palpation, no rebound, guarding or tenderness Extremities: + Generalized weakness when being asked to lift legs off the bed, + ecchymosis on bilateral knees s/p fall,, no peripheral edema or erythema, calfs nontender to palpation Psych: Normal mood and affect Neuro: AAO x 3, strength intact bilaterally and rated 4/5, no gross motor deficits, speech is clear, no peripheral sensory deficits Skin: no rash or erythema Results & Data Results & Data ([facility]) Vital Signs (Past 12 Hours) Vital Signs Temp Pulse Pulse Resp BP BP Pulse Ox 09/25/19 13:13 72 20 158/87 H 95 09/25/19 10:53 36.8 C 99 H 20 122/75 95 Diagnostic Findings XR chest 1V portable HISTORY: weakness COMPARISON: None. FINDINGS: No pneumothorax. No pleural effusions. Surgical clips within the left axilla. Slight prominence of interstitial markings which may be chronic. No evidence for real pulmonary edema. No focal lung consolidations to suggest pneumonia. The heart is top normal in size. IMPRESSION: No acute process. CT head/brain wo con CT DOSE: 537.48 mGy.cm HISTORY: Trauma. Mental status change. fall, tremors TECHNIQUE: Multiaxial CT images of the head were performed without the use of intravenous contrast. A dose lowering technique was utilized adhering to the principles of ALARA. Comparison: None. Findings: The paranasal sinuses and mastoid air cells are clear. The calvarium and skull base are intact. The ventricles and sulci are within normal limits. There is no mass, hematoma, midline shift, or acute infarct. Impression: No acute intracranial abnormality. Mild age-related atrophy and chronic small vessel change. MRI OF THE BRAIN WITHOUT IV CONTRAST CLINICAL HISTORY: Dizziness. Multi system atrophy. Parkinsonism. COMPARISON STUDY: CT of the brain dated 12/04/2018. TECHNIQUE: MRI of the brain was performed utilizing various T1 and T2-weighted sequences in the axial, sagittal, and coronal planes. IV contrast was not administered for this examination. FINDINGS: Brain parenchyma: There is age-related involutional change noting mild to moderate patchy subcortical and periventricular microangiopathic disease. There is no hemorrhage or mass effect. There is no restricted diffusion to suggest acute ischemia. Mclean-white matter differentiation is preserved. No extra-axial fluid collection is seen. The cerebellar tonsils are normal in configuration. Ventricles, sulci, and cisterns: Prominent secondary to involutional change. Cavum septum pellucidum is incidentally noted. Pituitary and sella: Unremarkable. Intracranial vasculature: Normal flow voids are maintained at the skull base. Orbits: The bony orbits are grossly intact. Orbital contents are normal in appearance noting bilateral ocular lens implants. Sinuses and mastoids: The paranasal sinuses are clear. There is a small left mastoid effusion. Calvarium: Unremarkable. Cervical cord: Partially visualized cervical spinal cord is normal in morphology and signal intensity. IMPRESSION: No acute intracranial abnormality is identified. MR cervical spine wo con CLINICAL HISTORY: 88 years-old Female presenting with gait disorder, proprioceptive loss, history of Parkinson's disease, intermittent dizziness, history of stroke, r/o myelopathy. TECHNIQUE: Multisequence, multiplanar MR imaging of the cervical spine was performed without the use of intravenous contrast. IV contrast: None. COMPARISON: None. FINDINGS: Localizer images: Unremarkable. Normal cervical lordosis. Vertebral bodies maintain normal height, alignment, and bone marrow signal intensity. Diffuse intervertebral disc desiccation with mild height loss at C4-5. Additional multilevel degenerative changes further detail below: C2-3: No sac and spinal canal or neural foraminal narrowing. C3-4: Trace disc osteophyte complex minimally effaces the ventral thecal sac. Uncovertebral hypertrophy on the right results in mild right neural foraminal narrowing. C4-5: Disc osteophyte complex moderately effaces the ventral thecal sac and contours the anterior spinal cord more so on the left. Moderate bilateral lateral recess effacement. Uncovertebral hypertrophy results in mild to moderate bilateral neural foraminal narrowing. C5-6: Trace disc osteophyte complex with mild effacement of the ventral thecal s ac. No significant neural foraminal narrowing. C6-7: No significant spinal canal or neural foraminal narrowing. C7-T1: No significant spinal canal or neural foraminal narrowing. Cervical spine maintains normal morphology and signal intensity throughout apart from the contouring defect at C4-5. No evidence of myelomalacia or spinal cord edema. Radius cervical junction normal. No epidural collection. No paraspinal muscle edema. Vasculature grossly patent. Remaining visualized soft tissues within normal limits. IMPRESSION: 1. Multilevel degenerative changes most significant at C4-5, where there is moderate spinal canal stenosis and contouring of the spinal cord. Spinal cord impingement is considered unlikely. No myelomalacia or spinal cord edema. Neural foraminal narrowing most significant at this level. ECG Additional Comments: 25-SEP-2019 11:31:41 [facility]-EDSTAT ROUTINE RETRIEVAL Atrial fibrillation Abnormal ECG When compared with ECG of 04-DEC-2018 10:27, No significant change was found 25mm/s 10mm/mV 150Hz 9.0.9 12SL 241 PILAR: 13 Referred by: PCP Unconfirmed Vent. rate 83 BPM WV interval * ms QRS duration 86 ms QT/QTc 338/397 ms P-R-T axes * 74 54 Code Status & VTE Plan Code Status DNR -discussed with the patient and her [id number] at bedside Supervising Physician Co-Signing Physician Notes Attending Attestation and Admission Note - Pt seen/examined, chart reviewed, admission care plan d/w RIRI Yeager. I agree w/ the kincaid components of her admission documentation. 89yo female with h/o prior breast ca & uterine ca, CKD stage 4, a.fib on coumadin, Multiple systems atrophy / PD -- presenting with hypercalcemia. Labs were checked as outpatient and incidentally her calcium was found to be high at >12. Directed to the ER for admission. Patient reports worsening weakness in the last few weeks/months along with poor appetite, weight loss (5 pounds?), and simply feeling unwell. c/o b/l leg pain which is chronic. Denies pain in other locations (no back pain, etc). PMH, PSH, allergies, meds, sochx, famhx - reviewed VSS, no fever gen - looks weak, NAD mouth - MM dry neck - no JVD heart - irregular, s1 s2 lungs - CTA b/l abd - soft, NT, no HSM ext - no edema neuro - strength b/l legs 5/5; arms 5/5 b/l labs - total calcium 12.6 Cr 3 (baseline high 1's) mild anemia (11.5) mild thrombocytopenia (146) A/P: 1. hypercalcemia - phos is normal making primary hyperparathyroidism unlikely. Check intact PTH. Check parathyroid-like protein. Age, mild anemia, mild thrombocytopenia, weight loss - r/o multiple myeloma. Check SPEP, UPEP. Cont IV fluids; lasix IV prn. Recheck BMP am. If felt to be malignancy related may need IV bisphosphonate. HOLD calcitriol. Check 25-OH vit D am as well. 2. ACUTE KIDNEY INJURY -- 2nd to #1 and volume depletion. Hydrate with NS. Serial BMPs. Check renal u/s - r/o obstruction, although unlikely. Hold any nephrotoxic agent including RADHA. 3. LE pain - chronic - cont gabapentin, etc 4. multiple systems atrophy / PD - cont sinemet, etc PT, OT - probably to need rehab post-d/c Nathan Gaona MD PG Care Time/CCT Total # of Minutes Spent Total Time Spent with Patient: Total time spent is greater than 50% in coordination of care (as documented) at patient's floor/unit and/or counseling patient: Coding Level of Care Code 27881 Initial Inpt Care Lvl 3 Diagnoses Hypercalcemia E83.52 Atrial fibrillation I48.91 Congestive heart failure I50.9 Essential hypertension I10 Hyperlipidemia E78.5 Anemia D64.9 Parkinson's disease G20 Decubitus ulcer of left buttock, stage 2 L89.322 Chronic kidney disease N18.9 Depression with anxiety F41.8 Gastro-esophageal reflux disease without esophagitis K21.9 Disc degeneration, lumbar M51.36 Restless legs syndrome G25.81 Peripheral neuropathy G62.9 DVT prophylaxis Z29.9
--- NOTE | 2019-09-25 14:45 | Emergency Department Note ---
Impression & Plan Hypercalcemia, STEVEN (acute kidney injury), Contusion of knee, left, Contusion of knee, right ED Provider Note INFORMANT: [Patient] ED PROVIDER(S): Scott Davidson MD CHIEF COMPLAINT: Abnormal labs PLAN: Disposition: Admitted Condition: [Good] MEDICAL DECISION MAKING: The patient presented because of abnormal labs. She had blood work obtained. She was hydrated. She had an ECG performed which showed stable A. fib. Lab work confirmed her hypercalcemia and acute kidney injury. The patient did have some confusion about her medications which could be compounding the problem. Because of the findings and situation further management in the hospital was deemed appropriate. Consultation was made with the [facility] service,Tiffany Yeager PA-C. The patient was evaluated in the ER and admitted for further treatment. Triage Nursing notes reviewed and agree them. [Additional history obtained from] family [Prior medical records reviewed] mild renal insufficiency present in the past.. Vital Signs: reviewed and remarkable for [no significant abnormalities] Differential diagnosis: Infection, dehydration, metabolic abnormality, hypo/hyperglycemia, electrolyte disturbance, anemia, hypoxia, cardiac sources, intracerebral event, toxicologic, neurologic, as well as other pathologies. Diagnostics interpreted by me: ECG: Twelve-lead ECG reveals atrial fibrillation at 83 bpm. There is no evidence of ST elevation or depression. Normal QRS and axis. No PVCs. Cardiac Monitoring: Cardiac monitoring ordered by me: The patient was placed on continuous cardiac monitoring and observed. It revealed atrial fibrillation at 88 beats per minute without ectopy or evidence of dysrhythmia. Consultation(s): [facility] service HPI: The patient is a 89 year old female who presents to the Emergency Room with complaints of abnormal labs. This started this week and she was notified last night that her kidney function and calcium were abnormal. The patient presented emergency department this morning for further evaluation. The patient also notes the following associated symptoms, feeling weak and tired. She notes that she slipped while using her walker and fell onto her knees bilaterally. She did not strike her head. The daughter notes that she has been falling more recently but no head injury was reported.. The patient has found no relieving factors. Current pain is rated as 4/10. Pt denies LOC, headache, fevers, chills, diaphoresis, visual changes, neck pain, chest pain, breathing difficulties, nausea, vomiting, abdominal pain, back pain, melena, hematochezia, urinary symptoms, numbness, lymphadenopathy, rash, or other complaints. ROS: See above HPI for pertinent positives & negatives. A total of [10] systems reviewed and were otherwise negative. PAST MEDICAL HISTORY:[See Below] atrial fibrillation, renal insufficiency PAST SURGICAL HISTORY:[See Below] FAMILY HISTORY:[See Below] SOCIAL HISTORY:[See Below] lives alone HOME MEDICATIONS:[See Below] ALLERGIES:[See Below] VITALS:[See Below] PHYSICAL EXAMINATION: GENERAL: Awake, alert, tired-appearing, in no distress HENT: Normocephalic, atraumatic. Oropharynx unremarkable. EYES: Normal conjunctiva. Sclera non-icteric. NECK: Inspection normal. Non-tender. Supple. No nuchal rigidity. FROM. No masses. RESPIRATORY: Clear to auscultation. No wheezes. No rales. Normal respiratory effort. CARDIAC: Normal rate. Normal rhythm. No murmurs. No rubs. Extremities warm and well perfused. Pulses equal. No JVD. GI: Soft, non-distended. No tenderness to palpation. No rebound or guarding. No masses. RECTAL: Deferred. MUSCULOSKELETAL: Atraumatic. Chest examination reveals no tenderness. The back is symmetrical on inspection without obvious abnormality. There is no CVA tenderness to palpation. No joint edema. LOWER EXTREMITIES: Calves are equal size bilaterally and non-tender. No edema. Mild ecchymotic discoloration to the knees anteriorly bilaterally. Good range of motion without bony deformity. No joint line tenderness. NEURO: Normal sensorium. No sensory or motor deficits noted. SKIN: No rash or jaundice noted. ED COURSE: [Critical Care:] [None] Scott Davidson MD Past Med/Surg History Medical History (Updated 09/25/19 @ 14:31 by Felisha Yeager PA-C) Actinic keratosis Anemia Atrial fibrillation Benign colonic polyp Carotid stenosis Cervical radiculopathy Chronic kidney disease Congestive heart failure Depression with anxiety Disc degeneration, lumbar Essential hypertension Gait abnormality Gastro-esophageal reflux disease without esophagitis Generalized weakness Glaucoma H/O cancer of uterus H/O malignant neoplasm of breast Hyperlipidemia Hypomagnesemia Multiple system atrophy with predominant parkinsonism Parkinson's disease Peripheral neuropathy Restless legs syndrome Rosacea Transient cerebral ischemia Surgical History History of breast biopsy History of mastectomy left S/P cardiac cath S/P cataract extraction bilateral S/P cholecystectomy S/P colonoscopy S/P dilatation and curettage S/P ear surgery S/P hysterectomy S/P knee replacement right Status post hip replacement left Family History Mother Stroke Social History Smoking Status: Never smoker Second Hand Exposure: No; Hx Alcohol Use: No Hx Substance Use: No Preferred Language: Cameroonian Communication Ability: Effective Buttermaker Helper Required: No Beliefs That Will Affect Care: None marital status: / Current Living Situation: Alone Feels Safe at Home: Yes Allergies Allergies Allergy/AdvReac Type Severity Reaction Status Date / Time cortisone Allergy Swelling Verified 09/25/19 13:20 of the Eye citalopram AdvReac Hallucinati Verified 09/25/19 13:20 Home Meds Home Medications Medication Instructions Recorded Confirmed letrozole 2.5 mg tablet 2.5 mg PO DAILY tab 09/19/18 09/25/19 travoprost 0.004 % eye drops 1 drops OP HS ml 12/30/18 09/25/19 atorvastatin 20 mg PO DAILY 09/25/19 09/25/19 warfarin 2.5 mg PO SUTUWETHFRSA 09/25/19 09/25/19 warfarin 3.75 mg PO MO 09/25/19 09/25/19 Previous Rx's Medication Instructions Recorded metoprolol succinate 50 mg 50 mg PO DAILY #90 tab 10/27/18 tablet,extended release 24 hr nitroglycerin 0.4 mg sublingual 0.4 mg SL Q5M PRN #25 tab 11/20/18 tablet furosemide 20 mg tablet 20 mg PO DAILY #90 tab 12/02/18 esomeprazole magnesium 40 mg 40 mg PO DAILY #90 cap 01/26/19 capsule,delayed release calcitriol 0.25 mcg capsule 0.25 mcg PO DAILY #90 cap 04/16/19 gabapentin 100 mg capsule 100 mg PO BID #60 cap 06/18/19 carbidopa 25 mg-levodopa 100 mg 1 tab PO QID 30 Days #120 tab 07/28/19 tablet lisinopril 5 mg tablet 5 mg PO DAILY #90 tab 07/29/19 clonazepam 0.5 mg tablet 0.5 mg PO DAILY #30 tab 08/25/19 mirtazapine 7.5 mg tablet 7.5 mg PO HS #30 tab 09/11/19 Results & Data (ED) Vital Signs Vital Signs - 24 hr 09/25/19 10:53 09/25/19 13:13 Temperature 36.8 C Temperature Source Oral Pulse Rate 99 H Pulse Rate [Apical] 72 Pulse Rhythm [Apical] Irregular Pulse Strength [Apical] Normal Respiratory Rate 20 20 Respiratory Effort / Characteristics Non-Labored Non-Labored Spontaneous Respiratory Depth Normal Normal Respiratory Pattern Regular Blood Pressure 122/75 Blood Pressure [Right Arm] 158/87 H Blood Pressure Mean 90 Blood Pressure Mean [Right Arm] 110 Blood Pressure Position [Right Arm] Sitting Pulse Oximetry 95 95 Oxygen Delivery Method Room Air Room Air Sepsis New/Unexplained Change in Mental Status N/A Sepsis Action Taken by Nursing No Action Required Laboratory Data Result diagrams: 09/25/19 11:47 09/25/19 11:47 Lab Results 09/25/19 09/25/19 09/25/19 Range/Units 11:47 11:47 12:10 WBC 4.84 (4.8-10.8) K/uL RBC 3.58 L (4.2-5.4) M/uL Hgb 11.5 L (12.0-16.0) g/dL Hct 35.7 L (37-47) % MCV 99.7 (80-100) fL MCH 32.1 (25-34) pg MCHC 32.2 (32-36) g/dL RDW Std Deviation 50.8 H (36.4-46.3) fL RDW Coeff of Gala 14.0 (11.5-14.5) % Plt Count 146 (130-400) K/uL MPV 11.6 H (7.4-10.4) fL Immature Gran % (Auto) 0.2 % Neut % (Auto) 60.4 % Lymph % (Auto) 26.2 % Casey % (Auto) 9.9 % Eos % (Auto) 3.1 % Baso % (Auto) 0.2 % Neut # (Auto) 2.92 (1.4-6.5) K/uL Lymph # (Auto) 1.27 (1.2-3.4) K/uL Casey # (Auto) 0.48 (0.11-0.59) K/uL Eos # (Auto) 0.15 (0-0.5) K/uL Baso # (Auto) 0.01 (0-0.2) K/uL Immature Gran # (Auto) 0.01 (0.00-0.02) K/uL Sodium 139 (136-145) mmol/L Potassium 3.8 (3.5-5.1) mmol/L Chloride 101 (98-107) mmol/L Carbon Dioxide 33 H (21-32) mmol/L Anion Gap 6.0 (3-11) BUN 36 H (7-18) mg/dl Creatinine 3.07 H (0.6-1.2) mg/dl Est Cr Clr Drug Dosing Not Reportable Est GFR ( Amer) 15.0 Est GFR (Non-Af Amer) 13.0 BUN/Creatinine Ratio 11.7 (10-20) Glucose 106 H (70-99) mg/dl Calcium 12.6 H* (8.5-10.1) mg/dl Total Bilirubin 0.5 (0.2-1) mg/dl AST 21 (15-37) U/L ALT 9 L (12-78) U/L Alkaline Phosphatase 78 (45-117) U/L Total Protein 7.7 (6.4-8.2) gm/dl Albumin 4.2 (3.4-5.0) gm/dl Globulin 3.5 (2.5-4.0) gm/dl Albumin/Globulin Ratio 1.2 (0.9-2) Lipase 116 (73-393) U/L Urine Color Yellow Urine Appearance Clear (Clear) Urine pH 7.5 (4.5-7.5) Ur Specific [place] 1.015 (1.000-1.030) Urine Protein Trace H (Negative) Urine Glucose (UA) Negative (Negative) Urine Ketones Negative (Negative) Urine Blood Negative (Negative) Urine Nitrite Negative (Negative) Urine Bilirubin Negative (Negative) Urine Urobilinogen Negative (Negative) Ur Leukocyte Esterase 3+ H (Negative) Urine RBC 0-4 (0-4) /hpf Urine WBC 10-30 H (0-5) /hpf Ur Epithelial Cells 10-20 H (0-5) /lpf Urine Bacteria 2+ H (Negative) Hyaline Casts 5-10 H (0-5) /lpf Administered Medications Discontinued Medications Sodium Chloride (Nss 1000ml) 500 mls @ 999 mls/hr IV .Q31M ONE Stop: 09/25/19 13:27 Last Infusion: 09/25/19 13:43 Dose: 0 mls/hr Documented by: [id number] Admin: 09/25/19 13:13 Dose: 999 mls/hr Documented by: [id number] Discharge Plan Visit Data Chief Complaint: Abnormal Labs/Diagnostic Testing Stated Complaint: REFERRED BY DOCTOR ED Provider: Scott Davidson Discharge Problem: Hypercalcemia, STEVEN (acute kidney injury), Contusion of knee, left, Contusion of knee, right Forms Stand Alone Forms: [facility] Prescriptions Prescriptions: No Action metoprolol succinate 50 mg tablet extended release 24 hr 50 mg PO DAILY Qty: 90 RF: 3 nitroglycerin 0.4 mg tablet, sublingual 0.4 mg SL Q5M PRN (Reason: chest pain) Qty: 25 RF: 1 furosemide 20 mg tablet 20 mg PO DAILY Qty: 90 RF: 3 esomeprazole magnesium 40 mg capsule,delayed release(DR/EC) 40 mg PO DAILY Qty: 90 RF: 3 calcitriol 0.25 mcg capsule 0.25 mcg PO DAILY Qty: 90 RF: 3 gabapentin 100 mg capsule 100 mg PO BID Qty: 60 RF: 5 lisinopril 5 mg tablet 5 mg PO DAILY Qty: 90 RF: 3 clonazepam 0.5 mg tablet 0.5 mg PO DAILY Qty: 30 RF: 2 mirtazapine 7.5 mg tablet 7.5 mg PO HS Qty: 30 RF: 5 travoprost 0.004 % drops 1 drops OP HS RF: 0 letrozole 2.5 mg tablet 2.5 mg PO DAILY RF: 0 carbidopa-levodopa 25-100 mg tablet 1 tab PO QID 30 Days Qty: 120 RF: 5 warfarin 2.5 mg tablet 3.75 mg PO MO RF: 0 atorvastatin 20 mg tablet 20 mg PO DAILY RF: 0 warfarin 2.5 mg tablet 2.5 mg PO SUTUWETHFRSA RF: 0
[2019-09-25 15:04] LABS: INR 3.1 (0.9-1.1); Prothrombin Time 30.6 Seconds (9.0-12.0)
[2019-09-25] MEDS ORDERED: NITROGLYCERIN SL 0.4 MG/TAB TAB SL PRN (15:43)
[2019-09-25] MEDS ORDERED: ACETAMINOPHEN 325 MG TAB PO PRN (15:43)
[2019-09-25] MEDS ORDERED: ONDANSETRON INJ 2 MG/ML 2 ML VIAL IV PRN (15:43)
[2019-09-25] MEDS: SODIUM CHLORIDE 0.9% 1000ML 1,000 ML IV SCH (17:51)
[2019-09-25] MEDS: CARBIDOPA/LEVODOPA 25/100MG TAB PO SCH ×2 (17:52→21:18)
[2019-09-25] MEDS: WARFARIN SOD 2.5 MG TAB PO SCH (18:50)
[2019-09-25] MEDS: GABAPENTIN 100 MG CAP PO SCH (21:18)
[2019-09-25] MEDS: MIRTAZAPINE TAB 15 MG TAB PO SCH (21:19)
[2019-09-25] MEDS: TRAVOPROST Z 0.004% OPH SOLN 2.5 ML BTL OP SCH (21:21)
[2019-09-26] MEDS: SODIUM CHLORIDE 0.9% 1000ML 1,000 ML IV SCH ×4 (00:11→23:24)
--- NOTE | 2019-09-26 07:03 | Electrocardiogram Report ---
Test Reason : Blood Pressure : / mmHG Vent. Rate : 083 BPM Atrial Rate : 326 BPM P-R Int : 000 ms QRS Dur : 086 ms QT Int : 338 ms P-R-T Axes : 000 074 054 degrees QTc Int : 397 ms Atrial fibrillation Abnormal ECG When compared with ECG of 04-DEC-2018 10:27, No significant change was found Confirmed by Jonatan Webb ([id number]) on 09/26/2019 7:02:47 AM Referred By: PCP Confirmed By:Jonatan Webb
[2019-09-26 07:53] LABS: Hematocrit (blood only) 35.4 % (37-47); Hemoglobin 11.6 g/dL (12.0-16.0); Mean Corpuscular Hemoglobin 32.4 pg (25-34); Mean Corpuscular Hgb Conc 32.8 g/dL (32-36); Mean Corpuscular Volume 98.9 fL (80-100); Mean Platelet Volume 11.4 fL (7.4-10.4); Platelet Count 146 K/uL (130-400); RDW Coefficient of Variation 13.9 % (11.5-14.5); RDW Standard Deviation 49.7 fL (36.4-46.3); Red Blood Count 3.58 M/uL (4.2-5.4); White Blood Count 4.92 K/uL (4.8-10.8)
[2019-09-26 08:24] LABS: Prothrombin Time 29.7 Seconds (9.0-12.0)
[2019-09-26] MEDS: CARBIDOPA/LEVODOPA 25/100MG TAB PO SCH ×4 (08:24→21:48)
[2019-09-26] MEDS: GABAPENTIN 100 MG CAP PO SCH ×2 (08:25→21:48)
[2019-09-26] MEDS: METOPROLOL SUCC 50MG EXT REL TAB PO SCH (08:25)
[2019-09-26] MEDS: PANTOprazole 40 MG TAB PO SCH (08:25)
[2019-09-26] MEDS: ATORVASTATIN 20 MG TAB PO SCH (08:25)
[2019-09-26] MEDS: LETROZOLE 2.5 MG TAB PO SCH (08:25)
[2019-09-26] MEDS: clonazePAM 0.5 MG TAB PO SCH (08:27)
[2019-09-26 08:31] LABS: BUN Creatinine Ratio 12.1 (10-20); Calcium 11.6 mg/dl (8.5-10.1); Creatinine Clr Calc Pharmacy 13.3 ml/min; Est GFR (African American) 16.4; Est GFR (Non-African American) 14.2; Potassium 3.7 mmol/L (3.5-5.1)
[2019-09-26] MEDS ORDERED: lisinopriL 5 MG TAB PO SCH (09:00)
--- NOTE | 2019-09-26 13:57 | Nephrology Consultation ---
Date of Consultation September 26, 2019 Assessment & Plan (1) Hypercalcemia: Presenting calcium 12.6 patient with advanced CKD and suppressed PTH at 21. Could simply be medication related if she actually was still taking calcitriol; other processes possible as well though. -cont NS at 125 mL hourly provided she continues to tolerate and no sob or orthopnea or worsening edema -follow up pending SPEP -do NOT resume calcitriol at discharge >with AM labs would also check TSH; 1, 25 dihydroxy vitamin D and would get 2 view CXR; hold off on checking vitamin A levels as this an unlikely cause -would not consider bisphosphonate or/and calcitonin yet Present on Admission?: Yes (2) Chronic kidney disease: CKD 4 with a labile baseline creatinine in the low to mid twos (as of March 2019 in [facility]) and mid to high ones in [facility] fall 2018. Creatinine was 2.8 on presentation, peaked at 3.1 yesterday and this am at 2.9 -cont Present on Admission?: Yes History of Present Illness Reason for Consultation: hypercalcemia, STEVEN on CKD Requesting Physician: Dr Ponce Attending Physician: Ashley Ponce MD History of Present Illness 89-year-old female whom I am asked to see for hypercalcemia and acute on chronic kidney failure was admitted here yesterday for management of hypercalcemia after outpatient labs came back with calcium 12.6. Past medical history includes CKD 4 with a labile baseline creatinine in the low to mid twos (as of March 2019 in [facility]) and mid to high ones in [facility] fall 2018, recurrent falls, hypertension, diffuse osteoarthritis, anxiety, chronic atrial fibrillation placated by TIA and stroke, Parkinson's. She had uterine and breast cancer both in 2014 with surgery and no recurrence. Uses a walker at baseline; lives independently with strong family support but feeling she must soon enter a facility. She follows in our nephrology practice with my partner Dr. Cox, last seen 03/2019. 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 I do note however that her outpatient medication list continues to have calcitriol on it for admission yesterday, though D3 and Centrum silver stopped. No more recent OP PTH or Ca on file. Historically minimal proteinuria 250 mg daily or less. Her creatinine on presentation was 2.8, essentially unchanged at 2.9 today. Her serum calcium today is 11.6. Intact PTH is suppressed at 21 with a 5 hydroxy vitamin D 44. Serum protein electrophoresis and PTH related protein are pending. Allergies Allergy/AdvReac Type Severity Reaction Status Date / Time cortisone Allergy Swelling Verified 09/25/19 13:20 of the Eye citalopram AdvReac Hallucinati Verified 09/25/19 13:20 ng Home Medications Home Medications Medication Instructions Recorded Confirmed Type letrozole 2.5 mg tablet 2.5 mg PO DAILY tab 09/19/18 09/25/19 History metoprolol succinate 50 mg 50 mg PO DAILY #90 tab 10/27/18 09/25/19 Rx tablet,extended release 24 hr nitroglycerin 0.4 mg sublingual 0.4 mg SL Q5M PRN #25 tab 11/20/18 09/25/19 Rx tablet furosemide 20 mg tablet 20 mg PO DAILY #90 tab 12/02/18 09/25/19 Rx travoprost 0.004 % eye drops 1 drops OP HS ml 12/30/18 09/25/19 History esomeprazole magnesium 40 mg 40 mg PO DAILY #90 cap 01/26/19 09/25/19 Rx capsule,delayed release calcitriol 0.25 mcg capsule 0.25 mcg PO DAILY #90 cap 04/16/19 09/25/19 Rx gabapentin 100 mg capsule 100 mg PO BID #60 cap 06/18/19 09/25/19 Rx carbidopa 25 mg-levodopa 100 mg 1 tab PO QID 30 Days #120 tab 07/28/19 09/25/19 Rx tablet lisinopril 5 mg tablet 5 mg PO DAILY #90 tab 07/29/19 09/25/19 Rx clonazepam 0.5 mg tablet 0.5 mg PO DAILY #30 tab 08/25/19 09/25/19 Rx mirtazapine 7.5 mg tablet 7.5 mg PO HS #30 tab 09/11/19 09/25/19 Rx atorvastatin 20 mg PO DAILY 09/25/19 09/25/19 History warfarin 2.5 mg PO SUTUWETHFRSA 09/25/19 09/25/19 History warfarin 3.75 mg PO MO 09/25/19 09/25/19 History Patient History Medical History Actinic keratosis Anemia Atrial fibrillation Benign colonic polyp Carotid stenosis Cervical radiculopathy Chronic kidney disease Congestive heart failure Depression with anxiety Disc degeneration, lumbar Essential hypertension Gait abnormality Gastro-esophageal reflux disease without esophagitis Generalized weakness Glaucoma H/O cancer of uterus H/O malignant neoplasm of breast Hyperlipidemia Hypomagnesemia Multiple system atrophy with predominant parkinsonism Parkinson's disease Peripheral neuropathy Restless legs syndrome Rosacea Transient cerebral ischemia Surgical History History of breast biopsy History of mastectomy left S/P cardiac cath S/P cataract extraction bilateral S/P cholecystectomy S/P colonoscopy S/P dilatation and curettage S/P ear surgery S/P hysterectomy S/P knee replacement right Status post hip replacement left Family History Mother Stroke Social History Smoking Status: Never smoker Second Hand Exposure: No; Hx Alcohol Use: No Hx Substance Use: No Preferred Language: Lao Communication Ability: Effective Windows Vmware Administrator Required: No Beliefs That Will Affect Care: None marital status: / Current Living Situation: Alone Other Information That Helps Us Care for You: No Feels Safe at Home: Yes Safety Concerns: Feels Safe At This Time Review of Systems Review of Systems: All systems reviewed & are unremarkable except as noted in HPI & below Constitutional: + body aches, + fatigue, + weakness, + anorexia and + weight loss Respiratory: no cough and no dyspnea Gastrointestinal: + early satiety (poor appetite); no abdominal pain and no constipation Genitourinary: + nocturia (2-3 times); no dysuria and no urinary frequency Musculoskeletal: + joint pain (Bl knees jose R) Neurologic: + gait abnormality, + unsteadiness, + falls, + generalized weakness and + abnormal movements Physical Exam Constitutional: well developed and well nourished; no acute distress sitting up in chair on RA Eyes: EOM intact bilaterally ENMT: Ears: no external ear abnormality Nose: no external nose abnormality Mouth: + dry oral mucous membranes Neck: no nuchal rigidity Respiratory: normal respiratory effort Auscultation: + diminished lung sounds (but clear) Cardiovascular: Rate/Rhythm: regular rate and regular rhythm Extremities: + edema (trace BLe) Gastrointestinal (Abdomen): Inspection/Auscultation: normal bowel sounds Percussion/Palpation: abdomen soft; abdomen nontender Musculoskeletal: Extremities: + limited ROM of extremities Skin: no rashes, warm and dry Neurologic: richards, fluent speech, upper limb resting tremor Psychiatric: A+Ox3, euthymic affect Results & Data ([facility]) Vital Signs (Past 12 Hours) Vital Signs Temp Pulse Resp BP Pulse Ox 09/26/19 11:14 36.7 C 69 18 114/72 97 09/26/19 07:26 36.8 C 109 H 20 146/77 H 95 09/26/19 03:02 36.9 C 88 16 120/63 92 Laboratory Results 09/26/19 07:39 09/26/19 07:39 PTH 21, phosphorus 3.2, albumin 4.1, 25 hydroxy vitamin D 44 Urinalysis: Clear yellow urine pH 7.5, specific gravity 1015, trace dipstick protein, 3+ leukocyte Estrace, 10-30 white cells, 10-20 epithelial cells, 2+ bacteria, 5-10 hyaline casts, 0-4 red cells. Diagnostic Findings none
--- NOTE | 2019-09-26 15:37 | Hospitalist Progress Note ---
Date of Service September 26, 2019 Assessment & Plan (1) Hypercalcemia: * Medication related issue vs multiple myeloma?? vs related to STEVEN on CKD vs other. Hx uterine ca s/p total hysterectomy and breast ca s/p L mastectomy * Continue IVF * As patient utilizes pill packs and not sure of her own medications, could be that she was continuing calcitriol when it was supposed to be stopped. HELD on admission and will verify with pharmacy in AM if able but DO NOT resume at d ischarge * Follows with [facility], unsure of provider per patient -- Consulted -- appreciate assistance * PTH wnl, PTH intact pending. Vit D 44. 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 Afib 70-80s on telemetry * INR 3.0 * Warfarin 3.75mg saturday, 2.5mg all other days * INR in AM (4) Congestive heart failure: * History of -- do not have access to most recent ECHO * Chronic diastolic CHF, appears dehydrated on exam with dry mm. IVF as above * No lasix, lisinopril given STEVEN * Continue metoprolol 50mg * Monitor volume status. concerning if worsening Cr for a cardiorenal picture (5) Essential hypertension: * Continue metoprolol 50 mg daily * RADHA/lasix on hold as above * BP 152/77 * Continue to monitor (6) Hyperlipidemia: * Continue atorvastatin 20 mg daily (7) Anemia: * Takes iron tablets at home per her report, has had issues with constipation and hates taking them, recently needed to take a stool softener for bowel movement * H/h 11.6/35. MCV upper end of normal. 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 * No longer on calcitriol (14) Restless legs syndrome: * Hx of such, possible parkinsonian syndrom adding to issues * PT/OT (15) Peripheral neuropathy: * chronic, cont gabapentin 100 mg twice daily * B12 level in AM (16) DVT prophylaxis: * Teds * Warfarin as above CODE: DNR Dispo: From home, likely to remain in the hospital through the weekend for placement in nursing facility. CM assisting Plans for referrals to both [facility] and [place] for short-term rehab with transition to LTC Admission and Anticipated Discharge Date Admission Date: September 25, 2019 Supervising Physician Co-Signing Physician Notes PA Supervision Note: I did not personally see or examine the patient today, but I verified all kincaid points of RIRI Aviles's assessment and plan with the following exceptions/additions: None Subjective Patient evaluated this morning. Feels generally weak. Constipated but did have a bowel movement for the first time in 2 days. States she deals with constipation frequency. Decreased swelling in her legs. Tremor not as bad today. Increased urinary frequency at night, 3x per night. Denies dysuria or hematuria. Endorses a sore throat, chronic back pain. Follows in [place] with [facility] although she states she had only been seen once by a new doctor and has not have follow up in some time. Oncologist Dr. Valdez for her hx uterine and breast Ca. Denies fever, chills, chest pain or shortness of breath. She plans on needing placement at discharge for her progressive weakness and Parkinson's. She states she does not know her medications or names as she utilizes pill packs from [facility] for her medications. Review of Systems Review of Systems: All systems reviewed & are unremarkable except as noted in HPI & below Physical Exam Constitutional: no acute distress sitting in chair, comfortable. NAD Eyes: EOM intact bilaterally ENMT: Ears: no external ear abnormality Nose: no external nose abnormality Mouth: + dry oral mucous membranes Neck: no nuchal rigidity Respiratory: normal respiratory effort and able to speak in complete sentence s; no respiratory distress Auscultation: + diminished lung sounds; no crackles and no wheezes Cardiovascular: Rate/Rhythm: + irregularly irregular Heart Sounds: no murmur Extremities: + edema (b/l trace edema) Chest (Breasts): Additional Comments: L mastectomy scar Gastrointestinal (Abdomen): Inspection/Auscultation: normal bowel sounds Percussion/Palpation: abdomen soft; abdomen nontender Musculoskeletal: Head/Neck/Chest: normocephalic and head atraumatic Extremities: + limited ROM of extremities (secondary to parkinsons) Skin: warm, dry Neurologic: decreased DTRs Speech clear resting tremor present to RUE Psychiatric: Orientation: alert, oriented x 3 and cooperative (pleasant) Affect: + flat affect Lymphatic: no cervical or axillary lymphadenopathy Results & Data Results & Data ([facility]) Vital Signs (Past 12 Hours) Vital Signs Temp Pulse Resp BP BP Pulse Ox 09/26/19 15:00 36.4 C L 87 18 152/77 H 96 09/26/19 11:14 36.7 C 69 18 114/72 97 09/26/19 07:26 36.8 C 109 H 20 146/77 H 95 Laboratory Results 09/26/19 09/26/19 09/26/19 Range/Units 07:39 07:39 07:39 WBC (4.8-10.8) K/uL RBC (4.2-5.4) M/uL Hgb (12.0-16.0) g/dL Hct (37-47) % MCV (80-100) fL MCH (25-34) pg MCHC (32-36) g/dL RDW Std Deviation (36.4-46.3) fL RDW Coeff of Gala (11.5-14.5) % Plt Count (130-400) K/uL MPV (7.4-10.4) fL PT (9.0-12.0) Seconds INR (0.9-1.1) Sodium 141 (136-145) mmol/L Potassium 3.7 (3.5-5.1) mmol/L Chloride 106 (98-107) mmol/L Carbon Dioxide 31 (21-32) mmol/L Anion Gap 4.0 (3-11) BUN 35 H (7-18) mg/dl Creatinine 2.85 H (0.6-1.2) mg/dl Est Cr Clr Drug Dosing 13.3 ml/min Est GFR ( Amer) 16.4 Est GFR (Non-Af Amer) 14.2 BUN/Creatinine Ratio 12.1 (10-20) Glucose 93 (70-99) mg/dl Calcium 11.6 H (8.5-10.1) mg/dl Total Protein (PEP) Albumin (PEP) Gwqqw-4-Necclzpok Nfcjg-4-Mfkeouuwm Qbcj-2-Ytockldw Yavk-3-Grcdsgdp Gamma Globulins Monoclonal Peak 3 Ser Monoclonl Protein Ser Monoclonal Prot 2 PEP Interpretation 25-OH Vitamin D Total 44.4 (30-100) ng/ml PTH Intact 21.1 (18.4-80.1) pg/ml PTH Related Protein 09/26/19 09/26/19 09/26/19 Range/Units 07:39 07:39 07:39 WBC 4.92 (4.8-10.8) K/uL RBC 3.58 L (4.2-5.4) M/uL Hgb 11.6 L (12.0-16.0) g/dL Hct 35.4 L (37-47) % MCV 98.9 (80-100) fL MCH 32.4 (25-34) pg MCHC 32.8 (32-36) g/dL RDW Std Deviation 49.7 H (36.4-46.3) fL RDW Coeff of Gala 13.9 (11.5-14.5) % Plt Count 146 (130-400) K/uL MPV 11.4 H (7.4-10.4) fL PT 29.7 H (9.0-12.0) Seconds INR 3.0 H (0.9-1.1) Sodium (136-145) mmol/L Potassium (3.5-5.1) mmol/L Chloride (98-107) mmol/L Carbon Dioxide (21-32) mmol/L Anion Gap (3-11) BUN (7-18) mg/dl Creatinine (0.6-1.2) mg/dl Est Cr Clr Drug Dosing ml/min Est GFR ( Amer) Est GFR (Non-Af Amer) BUN/Creatinine Ratio (10-20) Glucose (70-99) mg/dl Calcium (8.5-10.1) mg/dl Total Protein (PEP) Pending Albumin (PEP) Pending Arzqt-7-Bmrovjlwu Pending Ilose-2-Wmyzzcfta Pending Saml-3-Qakaypvl Pending Smpk-9-Yjvgrkcm Pending Gamma Globulins Pending Monoclonal Peak 3 Pending Ser Monoclonl Protein Pending Ser Monoclonal Prot 2 Pending PEP Interpretation Pending 25-OH Vitamin D Total (30-100) ng/ml PTH Intact (18.4-80.1) pg/ml PTH Related Protein Pending PG Care Time/CCT Total # of Minutes Spent Total Time Spent with Patient: Total time spent is greater than 50% in coordination of care (as documented) at patient's floor/unit and/or counseling patient: Coding Level of Care Code 03611 Subseq Hosp Care Lvl 3 Diagnoses Hypercalcemia E83.52 Acute kidney injury superimposed on CKD N17.9; N18.9 Atrial fibrillation I48.91 Congestive heart failure I50.9 Essential hypertension I10 Hyperlipidemia E78.5 Anemia D64.9 Parkinson's disease G20 Decubitus ulcer of left buttock, stage 2 L89.322 Chronic kidney disease N18.9 Depression with anxiety F41.8 Gastro-esophageal reflux disease without esophagitis K21.9 Disc degeneration, lumbar M51.36 Restless legs syndrome G25.81 Peripheral neuropathy G62.9 DVT prophylaxis Z29.9
[2019-09-26] MEDS: WARFARIN SOD 2.5 MG TAB PO SCH (17:16)
--- NOTE | 2019-09-26 17:47 | Communication Note ---
Date of Service: September 26, 2019 pt was not sure of her medications, such as whether she is taking calcitriol still. her meds are delivered by her local pharmacy; recommend clarifying with them if possible whether she was on this prior to admission
[2019-09-26] MEDS: TRAVOPROST Z 0.004% OPH SOLN 2.5 ML BTL OP SCH (21:49)
[2019-09-26] MEDS: MIRTAZAPINE TAB 15 MG TAB PO SCH (21:49)
[2019-09-27] MEDS: SODIUM CHLORIDE 0.9% 1000ML 1,000 ML IV SCH (07:29)
[2019-09-27 08:14] LABS: Hemoglobin 10.1 g/dL (12.0-16.0); Mean Corpuscular Hemoglobin 31.9 pg (25-34); Mean Corpuscular Hgb Conc 32.6 g/dL (32-36); Mean Corpuscular Volume 97.8 fL (80-100); Mean Platelet Volume 11.1 fL (7.4-10.4); Platelet Count 126 K/uL (130-400); RDW Coefficient of Variation 13.8 % (11.5-14.5); RDW Standard Deviation 49.6 fL (36.4-46.3); Red Blood Count 3.17 M/uL (4.2-5.4); White Blood Count 4.69 K/uL (4.8-10.8)
--- NOTE | 2019-09-27 08:36 | Ultrasound Report ---
EXAMINATION: RENAL ULTRASOUND CLINICAL HISTORY: Renal insufficiency. Possible hydronephrosis. COMPARISON STUDY: FINDINGS: The right kidney measures 9.3 cm. The left kidney measures 10.1 cm. There is no evidence o f hydronephrosis. There are no renal masses. There is bilateral renal cortical thinning. Medullary n ephrocalcinosis cannot be excluded. The bladder was decompressed the time of scanning. The examination was difficult from a technical standpoint. IMPRESSION : No evidence of hydronephrosis. ACT 112: Negative or not required by law. Electronically signed by: Umair Caal M.D. 09/27/2019 8:35 AM
[2019-09-27] MEDS: clonazePAM 0.5 MG TAB PO SCH (08:42)
[2019-09-27] MEDS: LETROZOLE 2.5 MG TAB PO SCH (08:43)
[2019-09-27] MEDS: PANTOprazole 40 MG TAB PO SCH (08:43)
[2019-09-27] MEDS: ATORVASTATIN 20 MG TAB PO SCH (08:43)
[2019-09-27] MEDS: METOPROLOL SUCC 50MG EXT REL TAB PO SCH (08:43)
[2019-09-27] MEDS: CARBIDOPA/LEVODOPA 25/100MG TAB PO SCH ×4 (08:43→20:55)
[2019-09-27] MEDS: GABAPENTIN 100 MG CAP PO SCH ×2 (08:43→20:54)
[2019-09-27 08:48] LABS: INR 3.8 (0.9-1.1); Prothrombin Time 37.1 Seconds (9.0-12.0)
[2019-09-27] MEDS ORDERED: HydrALAZINE HCL 20 MG/ML VIAL IV ONE (09:23)
[2019-09-27 10:13] LABS: Albumin Level 2.8 gm/dl (3.4-5.0); BUN Creatinine Ratio 14.4 (10-20); Bilirubin Direct 0.1 mg/dl (0-0.2); Calcium 9.6 mg/dl (8.5-10.1); Creatinine Clr Calc Pharmacy 18.7 ml/min; Est GFR (African American) 22.7; Est GFR (Non-African American) 19.6; Potassium 3.9 mmol/L (3.5-5.1)
[2019-09-27 10:22] LABS: Bilirubin,Total 0.4 mg/dl (0.2-1); Ferritin 451.7 ng/ml (8-388); Thyroid Stimulating Hormone 2.53 uIu/ml (0.300-4.500); Total Protein 5.9 gm/dl (6.4-8.2)
[2019-09-27 11:53] LABS: Folate (Folic Acid) > 24.00 ng/ml (>5.38); Vitamin B12 487 pg/ml (211-911)
--- NOTE | 2019-09-27 12:51 | Hospitalist Progress Note ---
Date of Service September 27, 2019 Assessment & Plan (1) Hypercalcemia: * Medication related issue vs multiple myeloma?? vs related to STEVEN on CKD vs other. Hx uterine ca s/p total hysterectomy and breast ca s/p L mastectomy * Continue IVF * As patient utilizes pill packs and not sure of her own medications, could be that she was continuing calcitriol when it was supposed to be stopped. * HELD on admission and will verify with pharmacy in AM if able but DO NOT resume at discharge --> pharmacy closed today so will need verified on Saturday. * Nephrology on consult -- appreciate assistance * PTH wnl, PTH intact pending. Vit D 44. Appropriately suppressed * 1,25 vit D pending * Follow SPEP, UPEP * TSH 2.530 * Per nephrology, would not consider bisphosphonate or calcitonin at this time * Starting p.o. 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 * Now with LE edema, will d/c fluids * US renal without evidence of hydro * Nephrology consulted -- appreciate assistance --> to have f/u with Dr Cox or RIRI Caicedo 1-2 weeks after hospital discharge; d/c summary updated * BMP in AM (3) Atrial fibrillation: * Chronic, follows with [facility] anticoagulation clinic . Afib 70-80s on telemetry * INR 3.8 -- no s/sx active bleeding at this time * Hold warfarin -- [employer] Warfarin 3.75mg saturday, 2.5mg all other days * INR in AM (4) Congestive heart failure: * History of -- do not have access to most recent ECHO * Chronic diastolic CHF, appears hydrated on exam. IVF d/c'd as above. SpO2 98% on RA * Lasix, lisinopril held given STEVEN as above * Will resume lasix now that Cr appear back to baseline and now with LE edema --> resume RADHA if Cr remains stable in AM * Continue metoprolol 50mg * Monitor volume status. 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 * No longer on calcitriol (14) Restless legs syndrome: * Hx of such, possible parkinsonian syndrom adding to issues * PT/OT (15) Peripheral neuropathy: * chronic, cont gabapentin 100 mg twice daily. B12 wnl. (16) DVT prophylaxis: * Teds * Warfarin as above on hold as INR supratherapeutic CODE: DNR Dispo: From home, likely to remain in the hospital through the weekend for placement in nursing facility. CM assisting Plans for referrals to both [facility] and [place] for short-term rehab with transition to LTC Admission and Anticipated Discharge Date Admission Date: September 25, 2019 Supervising Physician Co-Signing Physician Notes RIRI Supervision Note: I did not personally see or examine the patient today, but I verified all kincaid points of RIRI Aviles's assessment and plan with the following exceptions/additions: None Subjective Patient evaluated this morning. Feeling slightly better. Had a large BM last evening. Denies any blood in urine or stool, given INR elevated today. She follows with anticoag clinic outpt. Main concern today is LE swelling. Denies shortness of breath, cough, fever or chills. She notes this is has caused shininess to her shins and notes this is slightly better since IVF rate was decreased this morning. She states she drank A LOT this morning with breakfast, including boost, tea, water, and juice on her tray and thinks this may have made this a little worse as she typically drinks smaller amounts of water at home. She did have some pain in her left knee from previous fall but states she is no longer having the pain at this time. She continues to endorse that she uses [facility] for pill packs and that it is possible she was taking calcitriol when she was not supposed to be. Pharmacy closed today unfortunately and we will have to call in AM but that she will NOT be on this medication at discharge. She is planning on going to a personal chcf at discharge but is ok with acute rehab. She had good rehab in [place] in the past but she would like to end up closer to family so that they are able to visit her. Questions/concerns addressed at this time. Review of Systems Review of Systems: All systems reviewed & are unremarkable except as noted in HPI & below Physical Exam Constitutional: no acute distress sitting in chair, comfortable. NAD Eyes: EOM intact bilaterally ENMT: Ears: no external ear abnormality Nose: no external nose abnormality mmm Neck: no nuchal rigidity Respiratory: normal respiratory effort and able to speak in complete sentences; no respiratory distress Auscultation: + diminished lung sounds; no crackles and no wheezes Cardiovascular: Rate/Rhythm: + irregularly irregular Heart Sounds: no murmur Extremities: + edema (1+ pitting edema b/l LE with pretibial edema) Chest (Breasts): Additional Comments: L mastectomy scar Gastrointestinal (Abdomen): Inspection/Auscultation: normal bowel sounds Percussion/Palpation: abdomen soft; abdomen nontender Musculoskeletal: Head/Neck/Chest: normocephalic and head atraumatic Extremities: + limited ROM of extremities (secondary to parkinsons) Skin: cool, dry Neurologic: decreased DTRs Speech clear resting tremor present to RUE, less prominent today Psychiatric: Orientation: alert, oriented x 3 and cooperative (pleasant) Lymphatic: no cervical or axillary lymphadenopathy Results & Data Results & Data ([facility]) Vital Signs (Past 12 Hours) Vital Signs Temp Pulse Pulse Resp BP BP Pulse Ox 09/27/19 11:45 36.7 C 63 18 138/78 98 09/27/19 07:30 84 09/27/19 07:00 36.4 C L 76 18 163/98 H 98 09/27/19 04:00 36.4 C L 103 H 18 150/82 H 96 Laboratory Results 09/27/19 09/27/19 09/27/19 Range/Units 08:07 07:40 07:40 WBC (4.8-10.8) K/uL RBC (4.2-5.4) M/uL Hgb (12.0-16.0) g/dL Hct (37-47) % MCV (80-100) fL MCH (25-34) pg MCHC (32-36) g/dL RDW Std Deviation (36.4-46.3) fL RDW Coeff of Gala (11.5-14.5) % Plt Count (130-400) K/uL MPV (7.4-10.4) fL PT 37.1 H (9.0-12.0) Seconds INR 3.8 H (0.9-1.1) Sodium (136-145) mmol/L Potassium (3.5-5.1) mmol/L Chloride (98-107) mmol/L Carbon Dioxide (21-32) mmol/L Anion Gap (3-11) BUN (7-18) mg/dl Creatinine (0.6-1.2) mg/dl Est Cr Clr Drug Dosing ml/min Est GFR ( Amer) Est GFR (Non-Af Amer) BUN/Creatinine Ratio (10-20) Glucose (70-99) mg/dl Calcium (8.5-10.1) mg/dl Iron (35-150) mcg/dl TIBC (250-450) mcg/dl Transferrin (200-360) mg/dl Transferrin % Sat (15-50) % Ferritin (8-388) ng/ml Total Bilirubin (0.2-1) mg/dl Direct Bilirubin (0-0.2) mg/dl AST (15-37) U/L ALT (12-78) U/L Alkaline Phosphatase (45-117) U/L Total Protein (6.4-8.2) gm/dl Albumin (3.4-5.0) gm/dl Vitamin B12 487 (211-911) pg/ml Vit D 1,25-Dihyd Total Pending 1,25 Dihydroxy Vit D2 Pending 1,25 Dihydroxy Vit D3 Pending Folate > 24.00 (>5.38) ng/ml TSH (0.300-4.500) uIu/ml U Random Total Protein Ur Creatinine mg/dL Protein/Creatinin Ratio Urine Albumin (%) U Hqmjs-7-Uzkyxlrm (%) U Hkepl-1-Bfgwaaml (%) U Beta Globulin (%) U Gamma Globulin (%) U Abnormal Prot Band 1 U Abnormal Prot Band 2 U Abnormal Prot Band 3 Urine PEP Interpret 09/27/19 09/27/19 09/26/19 Range/Units 07:40 07:40 19:00 WBC 4.69 L (4.8-10.8) K/uL RBC 3.17 L (4.2-5.4) M/uL Hgb 10.1 L (12.0-16.0) g/dL Hct 31.0 L (37-47) % MCV 97.8 (80-100) fL MCH 31.9 (25-34) pg MCHC 32.6 (32-36) g/dL RDW Std Deviation 49.6 H (36.4-46.3) fL RDW Coeff of Gala 13.8 (11.5-14.5) % Plt Count 126 L (130-400) K/uL MPV 11.1 H (7.4-10.4) fL PT (9.0-12.0) Seconds INR (0.9-1.1) Sodium 144 (136-145) mmol/L Potassium 3.9 (3.5-5.1) mmol/L Chloride 114 H (98-107) mmol/L Carbon Dioxide 28 (21-32) mmol/L Anion Gap 2.0 L (3-11) BUN 31 H (7-18) mg/dl Creatinine 2.18 H D (0.6-1.2) mg/dl Est Cr Clr Drug Dosing 18.7 ml/min Est GFR ( Amer) 22.7 Est GFR (Non-Af Amer) 19.6 BUN/Creatinine Ratio 14.4 (10-20) Glucose 85 (70-99) mg/dl Calcium 9.6 D (8.5-10.1) mg/dl Iron 50 (35-150) mcg/dl TIBC 188 L (250-450) mcg/dl Transferrin 156 L (200-360) mg/dl Transferrin % Sat 23 (15-50) % Ferritin 451.7 H (8-388) ng/ml Total Bilirubin 0.4 (0.2-1) mg/dl Direct Bilirubin 0.1 (0-0.2) mg/dl AST 16 (15-37) U/L ALT 11 L (12-78) U/L Alkaline Phosphatase 57 (45-117) U/L Total Protein 5.9 L D (6.4-8.2) gm/dl Albumin 2.8 L (3.4-5.0) gm/dl Vitamin B12 (211-911) pg/ml Vit D 1,25-Dihyd Total 1,25 Dihydroxy Vit D2 1,25 Dihydroxy Vit D3 Folate (>5.38) ng/ml TSH 2.530 (0.300-4.500) uIu/ml U Random Total Protein Pending Ur Creatinine mg/dL Pending Protein/Creatinin Ratio Pending Urine Albumin (%) Pending U Avkum-6-Krdwnfxe (%) Pending U Zvazg-5-Xkeyhnyk (%) Pending U Beta Globulin (%) Pending U Gamma Globulin (%) Pending U Abnormal Prot Band 1 Pending U Abnormal Prot Band 2 Pending U Abnormal Prot Band 3 Pending Urine PEP Interpret Pending Diagnostic Findings US Renal IMPRESSION : No evidence of hydronephrosis. PG Care Time/CCT Total # of Minutes Spent Total Time Spent with Patient: Total time spent is greater than 50% in coordination of care (as documented) at patient's floor/unit and/or counseling patient: Coding Level of Care Code 02510 Subseq Hosp Care Lvl 3 Diagnoses Hypercalcemia E83.52 Acute kidney injury superimposed on CKD N17.9; N18.9 Atrial fibrillation I48.91 Congestive heart failure I50.9 Essential hypertension I10 Hyperlipidemia E78.5 Anemia D64.9 Parkinson's disease G20 Decubitus ulcer of left buttock, stage 2 L89.322 Chronic kidney disease N18.9 Depression with anxiety F41.8 Gastro-esophageal reflux disease without esophagitis K21.9 Disc degeneration, lumbar M51.36 Restless legs syndrome G25.81 Peripheral neuropathy G62.9 DVT prophylaxis Z29.9
--- NOTE | 2019-09-27 14:05 | Nephrology Progress Note ---
Date of Service September 27, 2019 Assessment & Plan (1) Hypercalcemia: Presenting calcium 12.6 patient with advanced CKD and suppressed PTH at 21. Could simply be medication related if she actually was still taking calcitriol; other processes possible as well though. TSH wnl. -off of NS due to worsening edema -follow up pending SPEP -do NOT resume calcitriol at discharge >f/u pending 25 dihydroxy vitamin D; hold off on checking vitamin A levels as this an unlikely cause of hypercalcemia -would not consider bisphosphonate or/and calcitonin at this time (2) Chronic kidney disease: CKD 4 with a labile baseline creatinine in the low to mid twos (as of March 2019 in [facility]) and mid to high ones in [facility] fall 2018. Creatinine was 2.8 on presentation, peaked at 3.1 on 09/24 and this am at 2.2 -cont daily bmp -pls arrange follow up appt in [facility] CKD clinic with Dr Cox or RIRI Caicedo 1-2 weeks after hospital discharge; d/c summary updated Admission and Anticipated Discharge Date Admission Date: September 25, 2019 Subjective c/o BLE edema; no new voiding complaints apart from nocturia; no abd pain; ongoing struggles to maintain po; no sob or orthopnea or cough Review of Systems Review of Systems: All systems reviewed & are unremarkable except as noted in HPI & below Physical Exam Constitutional: well developed and well nourished; no acute distress sitting u pin chair Eyes: EOM intact bilaterally ENMT: Ears: no external ear abnormality Nose: no external nose abnormality Mouth: + dry oral mucous membranes Neck: no nuchal rigidity Respiratory: normal respiratory effort Auscultation: + diminished lung sounds (but clear) Cardiovascular: Rate/Rhythm: regular rate and regular rhythm Extremities: + edema (trace BLe) Gastrointestinal (Abdomen): Inspection/Auscultation: normal bowel sounds Percussion/Palpation: abdomen soft; abdomen nontender Musculoskeletal: Extremities: + limited ROM of extremities Skin: no rashes, warm and dry Neurologic: richards, fluent speech Psychiatric: A+Ox3, euthymic affect Results & Data ([facility]) Vital Signs (Past 12 Hours) Vital Signs Temp Pulse Pulse Resp BP BP Pulse Ox 09/27/19 11:45 36.7 C 63 18 138/78 98 09/27/19 07:30 84 09/27/19 07:00 36.4 C L 76 18 163/98 H 98 09/27/19 04:00 36.4 C L 103 H 18 150/82 H 96 Laboratory Results 09/27/19 07:40 09/27/19 07:40 Ca 9.6
--- NOTE | 2019-09-27 16:29 | XRay Report ---
XR chest 2V PA/lateral HISTORY: 89 years-old Female hypercalcemia COMPARISON: Chest radiograph 12/04/2018 TECHNIQUE: PA and lateral views of the chest FINDINGS: Cardiac silhouette is enlarged, unchanged. Calcified plaque of the thoracic aortic arch. No pneumotho rax, pleural effusion, overt pulmonary edema or airspace consolidation typical for pneumonia. Chronic interstitial coarsening. Degenerative changes of the shoulders and spine. Surgical clips of the left axilla. Surgical clips also project over the upper abdomen. IMPRESSION: No acute process. ACT 112: Negative or not required by law. The above report was generated using voice recognition software. It may contain grammatical, syntax o r spelling errors. Electronically signed by: Morgan Palmer M.D. 09/27/2019 4:28 PM
[2019-09-27] MEDS: FUROSEMIDE 20 MG TAB PO SCH (16:43)
[2019-09-27] MEDS: MIRTAZAPINE TAB 15 MG TAB PO SCH (20:54)
[2019-09-27] MEDS: TRAVOPROST Z 0.004% OPH SOLN 2.5 ML BTL OP SCH (20:55)
[2019-09-28] MEDS: FUROSEMIDE 20 MG TAB PO SCH (07:44)
[2019-09-28] MEDS: PANTOprazole 40 MG TAB PO SCH (07:45)
[2019-09-28] MEDS: ATORVASTATIN 20 MG TAB PO SCH (07:45)
[2019-09-28] MEDS: LETROZOLE 2.5 MG TAB PO SCH (07:46)
[2019-09-28] MEDS: GABAPENTIN 100 MG CAP PO SCH ×2 (07:47→20:46)
[2019-09-28] MEDS: METOPROLOL SUCC 50MG EXT REL TAB PO SCH (07:47)
[2019-09-28] MEDS: CARBIDOPA/LEVODOPA 25/100MG TAB PO SCH ×4 (07:48→20:46)
[2019-09-28] MEDS: clonazePAM 0.5 MG TAB PO SCH (07:57)
[2019-09-28 08:36] LABS: Hematocrit (blood only) 34.3 % (37-47); Hemoglobin 11.2 g/dL (12.0-16.0); Mean Corpuscular Hemoglobin 31.9 pg (25-34); Mean Corpuscular Hgb Conc 32.7 g/dL (32-36); Mean Corpuscular Volume 97.7 fL (80-100); Mean Platelet Volume 11.4 fL (7.4-10.4); Platelet Count 135 K/uL (130-400); RDW Coefficient of Variation 14.1 % (11.5-14.5); RDW Standard Deviation 50.7 fL (36.4-46.3); Red Blood Count 3.51 M/uL (4.2-5.4); White Blood Count 5.45 K/uL (4.8-10.8)
[2019-09-28 08:44] LABS: INR 3.1 (0.9-1.1); Prothrombin Time 30.8 Seconds (9.0-12.0)
--- NOTE | 2019-09-28 10:58 | Nephrology Progress Note ---
Date of Service September 28, 2019 Assessment & Plan (1) Hypercalcemia: Presenting calcium 12.6 patient with advanced CKD and suppressed PTH at 21. Could simply be medication related if she actually was still taking calcitriol; other processes possible as well though. TSH wnl. Calcium better at 9.6 yesterday. -follow up pending SPEP -do NOT resume calcitriol at discharge -would not consider bisphosphonate or/and calcitonin at this time (2) Chronic kidney disease: CKD 4 with a labile baseline creatinine in the low to mid twos (as of March 2019 in [facility]) and mid to high ones in [facility] fall 2018. Creatinine was 2.8 on presentation, peaked at 3.1 on 09/24 and and 2.1 yesterday -cont daily bmp -pls arrange follow up appt in [facility] CKD clinic with Dr Cox or RIRI Caicedo 1-2 weeks after hospital discharge; d/c summary updated Admission and Anticipated Discharge Date Admission Date: September 25, 2019 Subjective She feels better today. Main complaint is weakness. She is eating and drinking well. Still has leg swelling. Creatinine fairly stable at 2.1. Review of Systems Review of Systems: All systems reviewed & are unremarkable except as noted in HPI & below Physical Exam Physical Exam: General exam: Appears comfortable, no acute distress HEENT: Pupils are equal and reactive to light Neck: No JVD, neck is supple trachea is midline Respiratory system: Clear breath sounds bilaterally. Gastrointestinal: Abdomen is soft, non distended, non tender, bowel sounds are present CVS: Regular rate and rhythm. No murmurs, rubs or gallops Musculoskeletal: No joint or muscle tenderness Extremities: Non tender, no edema, peripheral pulses are present Neuro: Oriented, no tremors, no focal neurological deficits Skin: No rashes Results & Data ([facility]) Vital Signs (Past 12 Hours) Vital Signs Temp Pulse Pulse Pulse Resp BP BP 09/28/19 07:12 36.4 C L 73 18 161/96 H 173/108 H 09/28/19 07:00 60 09/28/19 04:16 36.4 C L 59 L 18 150/92 H 09/27/19 23:43 36.4 C L 77 18 141/85 H 09/27/19 23:10 78 Pulse Ox 09/28/19 07:12 98 09/28/19 07:00 09/28/19 04:16 94 09/27/19 23:43 97 09/27/19 23:10 Laboratory Results 09/27/19 07:40 09/28/19 08:01 WBC 5.45 RBC 3.51 L MCV 97.7 MCH 31.9 MCHC 32.7 RDW Std Deviation 50.7 H RDW Coeff of Gala 14.1 Plt Count 135 MPV 11.4 H
--- NOTE | 2019-09-28 15:00 | Hospitalist Progress Note ---
Date of Service September 28, 2019 Assessment & Plan (1) Hypercalcemia: * most likely due to Calcitriol * Ca now normal, IV fluids stopped, on lasix to improve secretion of Calcium * Nephrology on consult -- appreciate assistance * PTH wnl, PTH intact pending. Vit D 44. Appropriately suppressed * 1,25 vit D pending * Follow SPEP, UPEP -- PENDING * TSH 2.530 * Per nephrology, would not consider bisphosphonate or calcitonin at this time * Starting p.o. Lasix today for lower extremity edema which will also help with hypercalcemia (2) Acute kidney injury superimposed on CKD: * CKD III/IV with baseline Cr closer to 1-2 (had been in the 1s Fall 2018 and low 2.0s Mar 2019 at outside lab) * Cr on admission 3.07 --> IVF @ 125cc/hr as above * Cr improved to 2 which is her baseline * stopped fluids when she developed peripheral edema * US renal without evidence of hydro * Nephrology consulted -- appreciate assistance --> to have f/u with Dr Cox or RIRI Caicedo 1-2 weeks after hospital discharge; d/c summary updated * BMP periodically (3) Atrial fibrillation: * Chronic, follows with [facility] anticoagulation clinic . Afib 70-80s on telemetry * INR 3.1 -- no s/sx active bleeding at this time * Hold warfarin again today, check INR in the morning (4) Congestive heart failure: * History of -- do not have access to most recent ECHO * Chronic diastolic CHF, appears hydrated on exam. IVF d/c'd as above. 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 * No longer on calcitriol (14) Restless legs syndrome: * Hx of such, possible parkinsonian syndrom adding to issues * PT/OT (15) Peripheral neuropathy: * chronic, cont gabapentin 100 mg twice daily. B12 wnl. (16) DVT prophylaxis: * Teds * INR 3.1 CODE: DNR Dispo: From home, likely to remain in the hospital through the weekend for placement in nursing facility. CM assisting Plans for referrals to [facility] for [facility] with transition to LTC likely ready for d/c tomorrow if accepted Admission and Anticipated Discharge Date Admission Date: September 25, 2019 Subjective patient doing great, no issues over night eating well, Ca is down to normal when last checked discussed plans for discharge, going to SNF, she is in agreement spoke with CM, they will make referrals patient denies fever/chills, sweats, chest pain, dyspnea, cough Review of Systems Review of Systems: All systems reviewed & are unremarkable except as noted in Subjective Physical Exam Constitutional: WD/WN, vitals as above Eyes: PERRL, conjunctivae normal, anicteric sclerae ENMT: external ear and nose normal, oropharynx normal Neck: trachea midline, no thyromegaly Respiratory: normal respiratory effort, lungs clear to auscultation Cardiovascular: RRR, no murmur, no edema Gastrointestinal (Abdomen): normal bowel sounds, soft, nontender, no hepatosplenomegaly Musculoskeletal: no cyanosis or clubbing, extremities motor strength 5/5 Skin: no rashes, warm and dry Neurologic: patellar DTR's 2+ bilat, sensation intact and PERRL, EOMI, accommodation nl, no face palsy, no dysarthria Psychiatric: A+Ox3, euthymic affect Lymphatic: no cervical or axillary lymphadenopathy Results & Data Results & Data ([facility]) Vital Signs (Past 12 Hours) Vital Signs Temp Pulse Pulse Pulse Resp BP BP 09/28/19 11:11 36.4 C L 63 18 153/65 H 09/28/19 07:12 36.4 C L 73 18 161/96 H 173/108 H 09/28/19 07:00 60 09/28/19 04:16 36.4 C L 59 L 18 150/92 H Pulse Ox 09/28/19 11:11 91 09/28/19 07:12 98 09/28/19 07:00 09/28/19 04:16 94 PG Care Time/CCT Total # of Minutes Spent Total Time Spent with Patient: Total time spent is greater than 50% in coordination of care (as documented) at patient's floor/unit and/or counseling patient: Coding Level of Care Code 54073 Subseq Hosp Care Lvl 3 Diagnoses Hypercalcemia E83.52 Acute kidney injury superimposed on CKD N17.9; N18.9 Atrial fibrillation I48.91 Congestive heart failure I50.9 Essential hypertension I10 Hyperlipidemia E78.5 Anemia D64.9 Parkinson's disease G20 Decubitus ulcer of left buttock, stage 2 L89.322 Chronic kidney disease N18.9 Depression with anxiety F41.8 Gastro-esophageal reflux disease without esophagitis K21.9 Disc degeneration, lumbar M51.36 Restless legs syndrome G25.81 Peripheral neuropathy G62.9 DVT prophylaxis Z29.9
[2019-09-28] MEDS ORDERED: WARFARIN SOD 1.25 MG TAB PO SCH (16:00)
[2019-09-28] MEDS ORDERED: WARFARIN SOD 2.5 MG TAB PO SCH (16:00)
[2019-09-28] MEDS: TRAVOPROST Z 0.004% OPH SOLN 2.5 ML BTL OP SCH (20:45)
[2019-09-28] MEDS: MIRTAZAPINE TAB 15 MG TAB PO SCH (20:46)
[2019-09-29 06:52] LABS: INR 2.6 (0.9-1.1); Prothrombin Time 25.8 Seconds (9.0-12.0)
[2019-09-29 08:36] LABS: BUN Creatinine Ratio 15.7 (10-20); Calcium 10.2 mg/dl (8.5-10.1); Creatinine Clr Calc Pharmacy 19.1 ml/min; Est GFR (African American) 23.1; Est GFR (Non-African American) 19.9; Potassium 3.8 mmol/L (3.5-5.1)
[2019-09-29] MEDS: ATORVASTATIN 20 MG TAB PO SCH (09:06)
[2019-09-29] MEDS: CARBIDOPA/LEVODOPA 25/100MG TAB PO SCH ×3 (09:06→15:47)
[2019-09-29] MEDS: GABAPENTIN 100 MG CAP PO SCH (09:06)
[2019-09-29] MEDS: clonazePAM 0.5 MG TAB PO SCH (09:06)
[2019-09-29] MEDS: FUROSEMIDE 20 MG TAB PO SCH (09:07)
[2019-09-29] MEDS: METOPROLOL SUCC 50MG EXT REL TAB PO SCH (09:07)
[2019-09-29] MEDS: LETROZOLE 2.5 MG TAB PO SCH (09:07)
[2019-09-29] MEDS: PANTOprazole 40 MG TAB PO SCH (09:07)
[2019-09-29 12:51] LABS: Albumin Level 2.8 gm/dl (3.4-5.0); Bilirubin Direct 0.1 mg/dl (0-0.2); Bilirubin,Total 0.4 mg/dl (0.2-1); Total Protein 5.8 gm/dl (6.4-8.2)
--- NOTE | 2019-09-29 14:27 | Nephrology Progress Note ---
Date of Service September 29, 2019 Assessment & Plan (1) Hypercalcemia: Presenting calcium 12.6 patient with advanced CKD and suppressed PTH at 21. Could simply be medication related if she actually was still taking calcitriol; other processes possible as well though. TSH wnl. Calcium is 10.2 today. Albumin is low at 2.8. Corrected calcium of about 12. Patient has history of breast cancer and given 90 PTH related hypercalcemia, malignancy is a major concern. -Recommend abdominal chest CT scan without contrast, if negative patient can be discharged and continue work-up as an outpatient. She will need oncology review in 2 weeks outpatient. Patient follows with Dr. Valdez -We will give calcitonin 300 units subcu once. -BMP next week on Saturday and copied to me. -Patient should follow-up with me in [place] next week -follow up pending SPEP -From renal standpoint patient can be discharged. She will need additional work-up but this can be done as an outpatient (2) Chronic kidney disease: CKD 4 with a labile baseline creatinine in the low to mid twos (as of March 2019 in [facility]) and mid to high ones in [facility] fall 2018. Creatinine was 2.8 on presentation, peaked at 3.1 on 09/24 and and 2.1 today -cont daily bmp -follow up appt in [facility] CKD clinic with Dr Cox (my office will arrange f/u next week) Admission and Anticipated Discharge Date Admission Date: September 25, 2019 Subjective Patient feels better today. No shortness of breath or urinary symptoms. She is ambulating and would like to go to [facility]. Calcium is slightly high today. Patient with history of breast cancer and left mastectomy about 7 years ago. She follows with Dr. Valdez and last saw him about 3 weeks ago. Review of Systems Review of Systems: All systems reviewed & are unremarkable except as noted in HPI & below Physical Exam Physical Exam: General exam: Appears comfortable, no acute distress HEENT: Pupils are equal and reactive to light Neck: No JVD, neck is supple trachea is midline Respiratory system: Clear breath sounds bilaterally. Gastrointestinal: Abdomen is soft, non distended, non tender, bowel sounds are present CVS: Regular rate and rhythm. No murmurs, rubs or gallops Musculoskeletal: No joint or muscle tenderness Extremities: Non tender, no edema, peripheral pulses are present Neuro: Oriented, no tremors, no focal neurological deficits Skin: No rashes Results & Data ([facility]) Vital Signs (Past 12 Hours) Vital Signs Temp Pulse Pulse Pulse Resp BP BP 09/29/19 11:19 36.3 C L 68 16 101/58 L 09/29/19 08:00 92 H 09/29/19 07:12 36.4 C L 66 18 142/69 H 09/29/19 03:30 36.6 C 98 H 16 149/81 H Pulse Ox 09/29/19 11:19 95 09/29/19 08:00 09/29/19 07:12 94 09/29/19 03:30 97 Laboratory Results 09/29/19 06:30 09/29/19 06:30 Albumin 2.8 L
[2019-09-29 15:19] VITALS: TEMP 98.2; O2SAT 96
[2019-09-29] MEDS: WARFARIN SOD 2.5 MG TAB PO SCH (15:47)
--- NOTE | 2019-09-29 15:49 | CT Scan Report ---
CT SCAN OF THE ABDOMEN AND PELVIS WITHOUT CONTRAST CLINICAL HISTORY: Hypercalcemia, rule out bone lesions EVALUATE FOR OCCULT MALIGNANCY COMPARISON STUDY: No previous studies for comparison. TECHNIQUE: CT scan of the abdomen and pelvis was performed from the lung bases to the proximal femurs . Images are reviewed in the axial, sagittal, and coronal planes. IV contrast was not administered fo r this examination. A dose lowering technique was utilized adhering to the principles of ALARA. CT DOSE: 698.50 mGy.cm FINDINGS: Lower chest: There is mild cardiomegaly. There are no pleural effusions. Liver: The unenhanced liver is normal in size, contour, and attenuation. There is no intrahepatic oliva iary ductal dilatation. Gallbladder: Surgically absent Spleen: Normal in size and attenuation. Pancreas: Unremarkable. Adrenal glands: Unremarkable. Kidneys: There is a 2 mm nonobstructing left renal calculus. There is no hydronephrosis. No suspiciou s renal masses are visualized given the limitations of a noncontrast study. Bowel: There are no transition zones indicate bowel obstruction. There is no evidence of acute append icitis. There is no evidence of acute diverticulitis. Peritoneum: There is no intraperitoneal free air or abdominal ascites. Vasculature: The abdominal aorta is normal in course and caliber. Adenopathy: None. Pelvic viscera: The uterus is surgically absent Skeletal structures: There is total left hip arthroplasty. There are advanced arthritic changes of th e right hip. There are no suspicious lytic or blastic skeletal lesions. A 7 mm lytic focus involving the T12 vertebra, likely represents a small hemangioma. IMPRESSION: 1. No acute intra-abdominal or pelvic findings 2. No evidence of bowel obstruction. No evidence of free air 3. No acute inflammatory changes 4. 2 mm nonobstructing left renal calculus 5. No suspicious lytic or blastic skeletal lesions identified ACT 112: Negative or not required by law. Electronically signed by: Umair Caal M.D. 09/29/2019 3:47 PM
--- NOTE | 2019-09-29 15:52 | CT Scan Report ---
CT OF THE CHEST WITHOUT IV CONTRAST CLINICAL HISTORY: Hypercalcemia, rule out bone lesions. COMPARISON STUDY: Chest radiographs December 04, 2018 and September 27, 2019. TECHNIQUE: Axial images of the chest were obtained without IV contrast. Images were reviewed in the axial, sagittal, and coronal planes. IV contrast was not administered for this examination. Automat ed exposure control was utilized for the study. A dose lowering technique was utilized adhering to t he principles of ALARA. FINDINGS: No enlarged axillary, mediastinal or hilar lymph nodes are present. Patient is status post left mastectomy. There are postoperative findings within the left axilla. Moderate cardiomegaly is n oted. There is no pericardial effusion. There is moderate coronary artery calcification. No pneumotho rax or pleural effusion is noted. The central airways are patent. There are mild ground glass opaciti es with mosaic attenuation within the lungs. There is no consolidation to suggest pneumonia. No suspi cious lesions are identified within the bony thorax. The abdomen and pelvis will be reported separate ly. Gallbladder is surgically absent. IMPRESSION: 1. No suspicious lesions within the bony thorax. 2. Mild groundglass opacities with mosaic attenuation within the lungs. This could represent atelecta sis, air trapping or mild pulmonary edema. 3. Moderate cardiomegaly. ACT 112: Negative or not required by law. Electronically signed by: Tremayne Cheung M.D. 09/29/2019 3:50 PM
[2019-09-29 16:13] VITALS: BP 149/81; PULSE 72
--- NOTE | 2019-09-29 17:17 | Discharge Summary ---
Date of Service September 29, 2019 Admission HPI Per Admitting Provider This is an 89 yo F with PMhx of A. fib, CHF, HTN, HLD, anemia, history of breast cancer and uterine cancer, Parkinson's disease, peripheral neuropathy, RLS, rosacea, transient cerebral ischemia who presents with abnormal labs identifying hypercalcemia with CA = 12.6. She admits to having recent falls, her most recent being last Saturday where she slid out of her lift chair onto the ground and hit both of her knees. [id number] at bedside reports that she has had increasing weakness over the last year, and that her falls have become more frequent. She does use a walker at baseline, however does not walk as much as she should, has a small sacral ulceration due to this, and has poor oral intake. She restricts her fluid intake because she does not want to have to get up and pee as often. Since falling last Saturday she feels that she has not quite been herself. She is agreeable to placement in nursing facility permanently. Patient denies any other acute complaints. Principal Diagnosis Hypercalcemia Discharge Exam Constitutional WD/WN, vitals as above Eyes PERRL, conjunctivae normal, anicteric sclerae ENMT external ear and nose normal, oropharynx normal Neck trachea midline, no thyromegaly Respiratory normal respiratory effort, lungs clear to auscultation Cardiovascular RRR, no murmur, no edema Gastrointestinal (Abdomen) normal bowel sounds, soft, nontender, no hepatosplenomegaly Musculoskeletal no cyanosis or clubbing, extremities motor strength 5/5 Skin no rashes, warm and dry Neurologic patellar DTR's 2+ bilat, sensation intact and PERRL, EOMI, accommodation nl, no face palsy, no dysarthria Psychiatric A+Ox3, euthymic affect Lymphatic no cervical or axillary lymphadenopathy Discharge Data Allergies Allergy/AdvReac Type Severity Reaction Status Date / Time cortisone Allergy Swelling Verified 09/25/19 13:20 of the Eye citalopram AdvReac Hallucinati Verified 09/25/19 13:20 ng Consultations 09/25/19 13:55 ED Decision to Admit Stat 09/25/19 15:43 Consult Case Management - Discharge Planning Routine 09/26/19 13:07 Consult Nephrology Routine 09/26/19 19:13 Consult Health Information Management Routine Ordered Studies 09/26/19 18:28 US renal/blad retro comp Routine 09/29/19 13:42 CT abd pelvis wo con Urgent CT chest wo con Urgent Hospital Course (1) Hypercalcemia: * most likely due to Calcitriol use, she was supposed to stop taking months ago * of note, her calcium was as high as 12 in March 2019, at that time her calcium supplements and vitamin D were stopped work up included CT of the chest and abd/pelvis that showed NO EVIDENCE of bony lesions, thus no signs of bony metastases PTH was low normal at 21, thus it was appropriately suppressed PTH related peptide still pending Vitamin D 44, thus she has no toxicity 1,25 vitamin D levels pending SPEP and UPEP sent out, results pending calcium responded well to IV fluids and then resuming Lasix to excrete the calcium plan, Calcitriol has been DISCONTINUED stay well hydrated and continue to use Lasix 20mg daily no bisphosphonates at this time, her Cr clearance is < 30 so Zolendronic acid is contraindicated check BMP in one week, 10/04, with results to Dr. Cox (airworthiness safety inspector) follow up on results of SPEP and UPEP (2) Acute kidney injury superimposed on CKD: * CKD III/IV with baseline Cr closer to 1-2 (had been in the 1s Fall 2018 and low 2.0s Mar 2019 at outside lab) * Cr on admission 3.07 --> IVF @ 125cc/hr as above * Cr improved to 2.1 on day of discharge, this is her baseline * stopped fluids when she developed peripheral edema * US renal without evidence of hydro * Nephrology consulted -- appreciate assistance --> to have f/u with Dr Cox or RIRI Caicedo 1-2 weeks after hospital discharge; d/c summary updated * BMP on 10/04 (3) Atrial fibrillation: * Chronic, follows with [facility] anticoagulation clinic . Afib 70-80s on telemetry * INR 2.6 -- no s/sx active bleeding at this time * continue Warfarin on discharge (4) Congestive heart failure: * History of -- do not have access to most recent ECHO * Chronic diastolic CHF, appears hydrated on exam. IVF d/c'd as above. 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 * No longer on calcitriol (14) Restless legs syndrome: * Hx of such, possible parkinsonian syndrom adding to issues * PT/OT (15) Peripheral neuropathy: * chronic, cont gabapentin 100 mg twice daily. B12 wnl. Total Time Total Time Spent Total Time Spent (In Minutes): 40 minutes Total Time Includes: Examination of the Patient, Discharge Planning, Medication Reconciliation and Communication With Other Providers (discussed with Dr. Cox) Discharge Plan Discharge Items Patient Disposition: Transfer Senior Living Fac Reason For Visit: HYPERCALCEMIA Discharge Diagnosis: Hypercalcemia CKD stage IV Goals: follow up with BMP next week, results to Dr. Cox stay well hydrated while also using the Lasix to promote calcium excretion Activity: Resume your previous activity Non-emergency contact: Primary Care Provider and Senior Program Analyst Call non-emergency contact if: you have any medication questions and your symptoms worsen Follow-up/Referrals: Emily Gunderson MD [Primary Care Provider] - (one week) Mary Cox MD [Physician] - (2 weeks) Diet: Heart Healthy Addtl Attending Provider Instructions: Medications: NO FURTHER CALCITRIOL Acute kidney injury on CKD stage IV Cr is back to baseline after IV hydration, Cr is 2.18 today continue prior medications for maintenance of kidney disease Hypercalcemia thought to be due to patient taking Calcitriol inappropriately, was supposed to be discontinued previously has a history of calcium of 12 back in March 2019 and vitamin D and calcium supplements were stopped calcium improved with IV fluids and then resuming Lasix to promote excretion of note, PTH low normal at 22 thus it is not hyperparathyroidism Vitamin D level normal CT chest and abd/pelvis negative for any bony lesions SPEP and UPEP ordered, still pending, follow up with nephrology for results needs to stay well hydrated with water but also take the Lasix BMP in one week with results to Dr. Cox and Dr. Gunderson -pls arrange follow up appt in [facility] CKD clinic with Dr Cox or RIRI Caicedo 1-2 weeks after hospital discharge -do NOT discharge on calcitriol Pending Studies at Discharge: No Stand-Alone Forms: My [facility] Skilled Items Patient informed of condition?: Yes DNR: Yes Discharge Level of Care: Skilled Communicable Disease: No Discharge Prognosis: Stable Lines: None Urinary Catheter: No Medications and DC Order Prescriptions: Continued metoprolol succinate 50 mg tablet extended release 24 hr 50 mg PO DAILY Qty: 90 RF: 3 nitroglycerin 0.4 mg tablet, sublingual 0.4 mg SL Q5M PRN (Reason: chest pain) Qty: 25 RF: 1 furosemide 20 mg tablet 20 mg PO DAILY Qty: 90 RF: 3 esomeprazole magnesium 40 mg capsule,delayed release(DR/EC) 40 mg PO DAILY Qty: 90 RF: 3 gabapentin 100 mg capsule 100 mg PO BID Qty: 60 RF: 5 lisinopril 5 mg tablet 5 mg PO DAILY Qty: 90 RF: 3 clonazepam 0.5 mg tablet 0.5 mg PO DAILY Qty: 30 RF: 2 mirtazapine 7.5 mg tablet 7.5 mg PO HS Qty: 30 RF: 5 travoprost 0.004 % drops 1 drops OP HS RF: 0 letrozole 2.5 mg tablet 2.5 mg PO DAILY RF: 0 carbidopa-levodopa 25-100 mg tablet 1 tab PO QID 30 Days Qty: 120 RF: 5 warfarin 2.5 mg tablet 3.75 mg PO MO RF: 0 atorvastatin 20 mg tablet 20 mg PO DAILY RF: 0 warfarin 2.5 mg tablet 2.5 mg PO SUTUWETHFRSA RF: 0 Discontinued calcitriol 0.25 mcg capsule 0.25 mcg PO DAILY Qty: 90 RF: 3 Discharge Orders: Discharge Order (Routine); Ordered 09/29/19 Ordered By: Pb Fatima Admission Data Admit Date/Time: 09/25/19 13:59 Attending Provider: Pb Fatima Admit Provider: Nathan Gaona Primary Care Provider: Emily Gunderson Other Providers: Nathan Gaona ; Denita Chung ; Amalia Villegas Other Interventions: Discharge Summary Assessment (RN) Last Done: 09/29/19 16:10 Coding Level of Care Code D/C Day Management >30 mins Diagnoses Hypercalcemia E83.52 Acute kidney injury superimposed on CKD N17.9; N18.9 Atrial fibrillation I48.91 Congestive heart failure I50.9 Essential hypertension I10 Hyperlipidemia E78.5 Anemia D64.9 Parkinson's disease G20 Decubitus ulcer of left buttock, stage 2 L89.322 Chronic kidney disease N18.9 Depression with anxiety F41.8 Gastro-esophageal reflux disease without esophagitis K21.9 Disc degeneration, lumbar M51.36 Restless legs syndrome G25.81 Peripheral neuropathy G62.9
[2019-09-30 11:23] LABS: Creatinine Ur 66 mg/dL (20-275); Protein, Urine Random 46 mg/dL (5-24); Ur Protein/Creat Ratio mg/g 697 mg/g creat (21-161); Urine Abnormal Protein Band 1 DNR mg/dL (NONE DETECTED); Urine Abnormal Protein Band 2 DNR mg/dL (NONE DETECTED); Urine Abnormal Protein Band 3 DNR mg/dL (NONE DETECTED); Urine Protein/Creatinine Ratio 0.697 (0.021-0.161)
[2019-10-01 13:43] LABS: Vitamin D 1,25 16 pg/mL (18-72); Vitamin D3,1,25 16 pg/mL
[2019-10-02 16:18] LABS: Albumin 3.8 g/dL (3.8-4.8); Alpha 1 Globulin 0.3 g/dL (0.2-0.3); Alpha 2 Globulin 0.8 g/dL (0.5-0.9); Beta-1-Globulin 0.4 g/dL (0.4-0.6); Beta-2-Globulin 0.4 g/dL (0.2-0.5); Gamma Globulin 0.7 g/dL (0.8-1.7); Monoclonal Protein Band 1 DNR g/dL (NONE DETECTED); Monoclonal Protein Band 2 DNR g/dL (NONE DETECTED); Monoclonal Protein Band 3 DNR g/dL (NONE DETECTED); PTH Related Protein 20 pg/mL (14-27); Total Protein 6.4 g/dL (6.1-8.1)
== END 2019-09-29 17:37 | DRG 641 ==
LOC: ED 10:44 → SUATTDRO 13:59 → 2W 13:59